=== PATIENT | female | born 1945 | race Caucasian/White ===

== ENCOUNTER 2016-10-04 10:56 | Outpatient (CLI) | payer MEDICARE | END 2016-10-04 10:57 | disposition home or self-care (01) | DX: Z12.31 Encounter for screening mammogram for malignant neoplasm of breast (principal); R92.8 Other abnormal and inconclusive findings on diagnostic imaging of breast ==

== ENCOUNTER 2016-10-16 12:48 | Outpatient (CLI) | payer MEDICARE ==
--- NOTE | 2016-10-16 14:59 | Mammography Report ---
DIGITAL DIAGNOSTIC RIGHT MAMMOGRAM: 10/16/2016 CLINICAL INDICATION: Possible nodule on screening. TECHNIQUE: Right true lateral and spot compression views. COMPARISON: 10/04/2016, 09/17/2015, 05/22/2014, 02/22/2012, 09/07/2010, 2008. FINDINGS: The right breast again demonstrates scattered fibroglandular densities. The density in question, in the right upper outer central breast, dissipates on additional compression, appearing similar to previous examinations. Please also refer to right breast ultrasound of the same day. IMPRESSION: NEGATIVE EXAMINATION. RECOMMENDATION: Routine annual screening unless otherwise clinically indicated. BI-RADS category 1, negative. STANDARD QUALIFYING STATEMENTS 1. This examination was reviewed with the aid of Computer-Aided Detection (CAD). 2. A negative or benign imaging report should not delay biopsy if clinically suspicious findings are present. Consider surgical consultation if warranted. More than 5% of cancers are not identified by imaging. 3. Dense breasts may obscure an underlying neoplasm. JOB #: [id number] EXT JOB #: [id number] TOVA
--- NOTE | 2016-10-17 09:35 | Ultrasound Report ---
RIGHT BREAST ULTRASOUND: 10/16/2016 CLINICAL INDICATION: Possible asymmetry on mammogram. TECHNIQUE: Real-time scanning was performed with food service representative static images obtained. FINDINGS: Ultrasound of the right upper outer quadrant was performed. Unremarkable parenchyma is seen. No discrete solid or cystic nodule is appreciated. No sonographically suspicious findings are seen. IMPRESSION: NEGATIVE EXAMINATION. RECOMMENDATION: Routine annual screening unless otherwise clinically indicated. BIRADS CATEGORY 1 - NEGATIVE. MTDD
== END 2016-10-16 12:49 | disposition home or self-care (01) ==
LOC: DI 12:48
PROVIDERS: ATTEND Family Medicine
DX: N63 Unspecified lump in breast (principal)
CPT/HCPCS: 76642; G0206

== ENCOUNTER 2017-01-16 10:09 | Outpatient (CLI) | payer MEDICARE ==
[2017-01-16 13:39] LABS: BASOPHILS % (AUTO) 0.3 %; EOSINOPHILS # (AUTO) 0.1 10^3/uL (0.0-0.7); EOSINOPHILS % (AUTO) 0.9 %; HCT - HEMATOCRIT 35.2 % (37.0-47.0); HGB - HEMOGLOBIN 11.9 g/dL (12.0-16.0); LYMPHOCYTES # (AUTO) 1.3 10^3/uL (1.5-3.5); LYMPHOCYTES % (AUTO) 19.2 %; MEAN CORPUSCULAR HEMOGLOBIN 30.1 pg (27.0-31.0); MEAN CORPUSCULAR HGB CONC 33.8 g/dL (32.0-36.0); MEAN CORPUSCULAR VOLUME 89.2 fL (81.0-99.0); MEAN PLATELET VOLUME 8.6 fL (7.9-10.8); MONOCYTES # (AUTO) 0.6 10^3/uL (0.0-1.0); MONOCYTES % (AUTO) 8.7 %; NEUTROPHILS # (AUTO) 4.7 10^3/uL (1.5-6.6); NEUTROPHILS % (AUTO) 70.9 %; NUCLEATED RED BLOOD CELLS AUTO 0.1 /100WBC; RED BLOOD COUNT 3.95 10^6/uL (4.20-5.40); RED CELL DISTRIBUTION WIDTH 14.5 % (12.0-15.0); UNCORRECTED WHITE BLOOD COUNT 6.6 x10^3/uL; WHITE BLOOD COUNT 6.6 x10^3/uL (4.8-10.8)
[2017-01-16 14:03] LABS: ALBUMIN/GLOBULIN RATIO 1.5 (1.0-2.2); BILIRUBIN,TOTAL 0.8 mg/dL (0.2-1.0); BUN - BLOOD UREA NITROGEN 18 mg/dL (6-20); CALCIUM 8.8 mg/dL (8.5-10.3); CARBON DIOXIDE - CO2 27 mmol/L (21-32); CHLORIDE 103 mmol/L (101-111); CHOL/HDL RATIO 2.5 (<4.4); CHOLESTEROL 145 mg/dL; CREATININE 0.7 mg/dL (0.4-1.0); GFR - MDRD 82 (>89); GLUCOSE 98 mg/dL (70-100); HDL CHOLESTEROL 57 mg/dL; LDL/HDL RATIO 1.3 (<4.4); SODIUM 139 mmol/L (135-145); TOTAL PROTEIN 6.3 g/dL (6.7-8.2); TRIGLYCERIDES 59 mg/dL; VLDL CHOLESTEROL 12 mg/dL
== END 2017-01-16 10:10 | disposition home or self-care (01) ==
LOC: LAB.WCP 10:09
PROVIDERS: ATTEND Family Medicine
DX: E78.5 Hyperlipidemia, unspecified (principal); D72.829 Elevated white blood cell count, unspecified
CPT/HCPCS: 36415; 80053; 80061; 85025

== ENCOUNTER 2017-02-27 09:45 | Outpatient (CLI) | payer MEDICARE ==
[2017-02-27 14:09] LABS: CREATININE 0.7 mg/dL (0.4-1.0)
== END 2017-02-27 09:46 | disposition home or self-care (01) ==
LOC: LAB.WCP 09:45
PROVIDERS: ATTEND Family Medicine
DX: E87.6 Hypokalemia (principal)
CPT/HCPCS: 36415; 80048

== ENCOUNTER 2017-03-15 10:56 | Outpatient (CLI) | payer MEDICARE ==
[2017-03-15 19:18] LABS: CALCIUM 8.8 mg/dL (8.5-10.3); CREATININE 0.6 mg/dL (0.4-1.0); POTASSIUM 3.9 mmol/L (3.5-5.0)
== END 2017-03-15 10:57 | disposition home or self-care (01) ==
LOC: LAB.WCP 10:56
PROVIDERS: ATTEND Family Medicine
DX: E78.6 Lipoprotein deficiency (principal)
CPT/HCPCS: 36415; 80048

== ENCOUNTER 2017-09-10 12:55 | Outpatient (CLI) | payer MEDICARE | END 2017-09-10 12:56 | disposition home or self-care (01) | LOC: DI 12:55 | PROVIDERS: ATTEND Family Medicine | DX: R07.89 Other chest pain (principal); I27.20 Pulmonary hypertension, unspecified; I07.1 Rheumatic tricuspid insufficiency | CPT/HCPCS: 93306 ==

== ENCOUNTER 2017-09-20 09:28 | Outpatient (CLI) | payer MEDICARE ==
[2017-09-20] MEDS ORDERED: REGADENOSON 0.4 MG/5 ML SYRINGE IVP ONE ×2 (13:52→15:31)
--- NOTE | 2017-09-20 16:19 | Nuclear Medicine Report ---
EXAM: SINGLE-ISOTOPE PHARMACOLOGICAL STRESS TEST WITH LEXISCAN. SINGLE-ISOTOPE AND SAME-DAY REST/STRESS FERMIN CARDIAL PERFUSION SCANS WITH TOMOGRAPHIC IMAGING, QUANTITATIVE ANALYSIS, WALL MOTION ANALYSIS AND ANEESH CULATION OF EJECTION FRACTION. EXAM DATE: 09/20/2017 CLINICAL HISTORY: CHEST PAIN. COMPARISON: None. TECHNIQUE: Following the intravenous administration of 9.8 mCi of Tc-99m sestamibi, a rest myocardial perfusion scan was done with tomography. Motion correction was applied when appropriate. After a delay of several hours on the same day, a pharmacological stress was performed with the infus ion of 0.4 mg of Lexiscan with walking treadmill augmentation. According to protocol, 36.4 mCi of Tc- 99m sestamibi was injected for stress myocardial perfusion scan. Stress myocardial perfusion was done with tomography without attenuation correction. Motion correction was applied when appropriate. Gated tomographic images were obtained for wall motion analysis and computation of left ventricular ejection fraction. FINDINGS: Perfusion images: Left ventricular chamber size is normal at rest and unchanged at stress. No convincing fixed perfusion deficits. No convincing reversible perfusion deficits. Gated images: No focal wall motion abnormality. The left ventricular ejection fraction is estimated at 93% (normal > 50%). IMPRESSION: 1. No convincing reversible perfusion deficits to indicate stress-induced ischemia. 2. No convincing fixed perfusion deficits. 3. Left ventricular ejection fraction of 93% (normal > 50%). 4. No focal wall motion abnormalities. [facility] Referring Provider Line: [phone] SITE ID: [id number]
--- NOTE | 2017-09-20 16:19 | Nuclear Medicine Prelim Report ---
Exam: NM MYOCARDIAL PERFUSION STR/RST IMPRESSION: 1. No convincing reversible perfusion deficits to indicate stress-induced ischemia. 2. No convincing fixed perfusion deficits. 3. Left ventricular ejection fraction of 93% (normal > 50%). 4. No focal wall motion abnormalities. [facility] SITE ID: [id number]
--- NOTE | 2017-09-20 18:20 | CARDIAC PROCEDURE NOTE ---
DATE OF SERVICE: 09/20/2017 Physician: DOMENICO Sadler PLANNED PROCEDURE: Myocardial perfusion treadmill; procedure converted to Lexiscan. REASON: The patient severely fatigued and yet unable to get heart rate into target range after several minutes. PROCEDURE SYMPTOMS: Atypical chest pain, heart palpitations and pulmonary hypertension. CARDIAC RISK FACTORS: Include age and hyperlipidemia. PREVIOUS CARDIAC PROCEDURES: ETT. CURRENT SYMPTOMATOLOGY: "I am very tired." Denies chest pain. CLINICAL HISTORY: A 72-year-old female without known coronary artery disease. INITIAL RESTING VITAL SIGNS: BP 112/70, heart rate 74, height 64 inches, weight 136 pounds. PROCEDURE AND FINDINGS: The patient identity and date verified, consent signed. Medication check. The patient performed treadmill exercise beginning a Juan Carlos for the first 3 minutes and then a modified Juan Carlos protocol when she couldn't keep up speed at stage II. Despite completing 10 minutes 26 seconds at a tolerable speed, she was unable to achieve target heart rate. She was then converted to a pharmaceutical MPS with Lexiscan. Maximal blood pressure [id number] with a heart rate of 115 beats per minute or 78% of maximum predicted heart rate for age. The blood pressure response to exercise was flat; however, the blood pressure did go up about 30 points from the Lexiscan. The resting ECG demonstrated normal sinus rhythm with (possible) biphasic T-wave in leads I through III. Maximum ST segment depression was less than 0.5 mm and upsloping. There was occasional monomorphic PVC. FINAL IMPRESSIONS 1. Equivocal stress electrocardiogram for ischemia by electrocardiographic criteria. 2. Equivocal stress test clinically for angina in light of the patient's profound fatigue. 3. Occasional monomorphic PVC. 4. Await result of myocardial perfusion testing. 5. Dr. Lora was notified about the conversion to Lexiscan and about the patient's abnormal EKG. TD: 09[facility]20/2017 18:[facility]
[2017-09-20 19:06] VITALS: BP 112/70
== END 2017-09-20 09:29 | disposition home or self-care (01) ==
LOC: DI 09:28
PROVIDERS: ATTEND Family Medicine
DX: R07.89 Other chest pain (principal); E78.5 Hyperlipidemia, unspecified
CPT/HCPCS: 78452; 93017; A9500; J2785

== ENCOUNTER 2018-03-05 10:27 | Outpatient (CLI) | payer MEDICARE | END 2018-03-05 10:28 | disposition home or self-care (01) | LOC: SC 10:27 | PROVIDERS: ATTEND Internal Medicine Pulmonary Disease | DX: G47.31 Primary central sleep apnea (principal); F51.04 Psychophysiologic insomnia | CPT/HCPCS: 99203; G0463; 99212 ==

== ENCOUNTER 2018-04-06 09:26 | Outpatient (CLI) | payer MEDICARE ==
[2018-04-06] MEDS ORDERED: IOPAMIDOL-300 100 ML VIAL ONE (09:41)
[2018-04-06] MEDS ORDERED: IOPAMIDOL-300 50 ML VIAL ONE (09:41)
[2018-04-06 09:46] LABS: CREATININE 0.8 mg/dL (0.4-1.0)
[2018-04-06] MEDS ORDERED: IOPAMIDOL-300 50 ML VIAL PO ONE (10:28)
[2018-04-06] MEDS ORDERED: IOPAMIDOL-300 100 ML VIAL IVP ONE (10:41)
--- NOTE | 2018-04-06 13:53 | CT Report ---
Reason: ABDOMINAL PAIN, RLQ Procedure Date: 04/06/2018 Accession Number: [id number] / [id number] Procedure: CT - Abdomen/Pelvis W/ CPT Code: FULL RESULT: EXAM: CT ABDOMEN AND PELVIS EXAM DATE: 04/06/2018 10:48 AM. CLINICAL HISTORY: ABDOMINAL PAIN, RLQ. COMPARISONS: None. TECHNIQUE: Routine helical CT imaging was performed through the abdomen and pelvis. IV contrast: 100 cc Isovue-300. Enteric contrast: Yes. Reconstructions: Coronal and sagittal. In accordance with CT protocol optimization, one or more of the following dose reduction techniques were utilized for this exam: automated exposure control, adjustment of mA and/or KV based on patient size, or use of iterative reconstructive technique. FINDINGS: Lung Bases: Small calcified granulomata in the posterior basal right lower lobe and anterior basal left lower lobe. There is also scattered noncalcified peribronchial micro-nodularity in both lung bases greatest in the inferior lingula. There is mild interlobular septal thickening in both lung bases suggesting mild interstitial edema. Mildly mosaic density pattern is noted in both lung bases which is nonspecific but suggestive patchy air-trapping. Lower mediastinum: There are several densely calcified lymph nodes in the lower posterior mediastinum and at the esophageal hiatus. Also, there are clustered mildly prominent noncalcified lymph nodes at the right cardiophrenic angle measuring up to 9 mm short axis diameter. Smaller lymph nodes are noted at the left cardiophrenic angle. Liver: Normal. No masses. Gallbladder/Bile Ducts: Unremarkable. Spleen: Normal. Pancreas: Normal. Adrenal Glands: Normal. Kidneys: Normal. No masses or hydronephrosis. Peritoneal Cavity/Bowel: Stomach normal in size and contour. There are 4 or 5 and 2.5 cm oval diverticula arising medially from the second and third portions of the duodenum filled with air and contrast. Jejunal and ileal loops are unremarkable. The cecum extends into the right mid pelvis. The appendix is not clearly identified. There is a small to moderate amount of formed stool in the colon. There is moderate descending and sigmoid colon diverticulosis. There is no pericolonic fat stranding. There is no lymphadenopathy, ascites, or pneumoperitoneum. Pelvic Organs: The bladder is empty. The uterus is surgically absent. No adnexal mass is identified. Vasculature: There is minimal scattered calcification within the normal-caliber abdominal aorta. There is a retroaortic left renal vein. Otherwise unremarkable. Bones: No significant abnormality. Other: Abdominal wall is unremarkable. IMPRESSION: 1. No clear findings to explain right lower quadrant pain. The appendix is not clearly identified, but no inflammatory change is identified around the cecum. 2. Small to moderate formed stool in the colon. 3. Moderate descending and sigmoid colon diverticulosis without evidence of acute diverticulitis. 4. Calcified granulomata in the basilar lower lobes bilaterally. Small calcified lymph nodes inferiorly in the posterior mediastinum. [facility]
== END 2018-04-06 09:27 | disposition home or self-care (01) ==
LOC: LAB 09:26 → DI 09:27
PROVIDERS: ATTEND Family Medicine
DX: R10.31 Right lower quadrant pain (principal); K57.30 Diverticulosis of large intestine without perforation or abscess without bleeding; I89.8 Other specified noninfective disorders of lymphatic vessels and lymph nodes
CPT/HCPCS: 36415; 74177; 80048; Q9967

== ENCOUNTER 2018-04-07 18:57 | Outpatient (CLI) | payer MEDICARE | END 2018-04-07 18:58 | disposition home or self-care (01) | LOC: SC 18:57 | PROVIDERS: ATTEND Internal Medicine Pulmonary Disease | DX: G47.31 Primary central sleep apnea (principal); G47.61 Periodic limb movement disorder; Z99.81 Dependence on supplemental oxygen | CPT/HCPCS: 95810 ==

== ENCOUNTER 2018-05-21 09:14 | Outpatient (CLI) | payer MEDICARE | END 2018-05-21 09:15 | disposition home or self-care (01) | LOC: SC 09:14 | PROVIDERS: ATTEND Nurse Practitioner Family | DX: G47.31 Primary central sleep apnea (principal); G47.61 Periodic limb movement disorder | CPT/HCPCS: 99214; G0463; 99212 ==

== ENCOUNTER 2018-05-30 09:51 | Outpatient (CLI) | payer MEDICARE ==
[2018-05-30] MEDS ORDERED: IOPAMIDOL-300 100 ML VIAL ONE (10:01)
[2018-05-30 10:32] LABS: CALCIUM 9.4 mg/dL (8.5-10.3); CREATININE 0.8 mg/dL (0.4-1.0)
[2018-05-30] MEDS ORDERED: IOPAMIDOL-300 100 ML VIAL IVP ONE (11:22)
--- NOTE | 2018-05-30 16:01 | CT Report ---
Reason: LUNG NODULE Procedure Date: 05/30/2018 Accession Number: [id number] / [id number] Procedure: CT - Chest W/ CPT Code: FULL RESULT: EXAM: CT CHEST EXAM DATE: 05/30/2018 10:48 AM. CLINICAL HISTORY: LUNG NODULE. COMPARISONS: CT scan abdomen and pelvis 9 118. TECHNIQUE: Routine helical CT imaging was performed through the chest. IV contrast: 80 cc Isovue 300. Reconstructions: Coronal and sagittal. In accordance with CT protocol optimization, one or more of the following dose reduction techniques were utilized for this exam: automated exposure control, adjustment of mA and/or KV based on patient size, or use of iterative reconstructive technique. FINDINGS: Lungs/Pleura: The lungs are diffusely abnormal. Patchy mosaic perfusion is present. There is a masslike area of focal consolidation involving the right upper lobe abutting the major fissure. Small amount of patchy consolidation is seen in the lingula. Innumerable scattered pulmonary nodules are present, a few of which have central calcification, for example series 4 image 34. The majority are noncalcified. Increased interstitial markings are present which may reflect interstitial edema, chronic interstitial lung disease, or lymphatic spread of tumor. No pleural effusion or pneumothorax. Mediastinum: Innumerable calcified bilateral hilar and mediastinal lymph nodes are present. The main pulmonary artery is dilated measuring 3.2 centimeters. The proximal bilateral right and left main pulmonary arteries are focally dilated each measuring approximately 3 cm Bones: Degenerative change in the spine. IMPRESSION: Markedly abnormal chest CT demonstratin. Evidence of old granulomatous disease with calcified hilar and mediastinal lymph nodes and a few scattered calcified granulomata in the lungs consistent with old infection. 2. Innumerable pulmonary nodules most of which are uncalcified. Differential includes infection, inflammatory diseases, and metastatic disease. 3. Masslike area of focal consolidation right upper lobe with small amount of lingular consolidation. Differential includes infection and tumor. 4. Dilated main, right and left pulmonary arteries consistent with pulmonary hypertension. [facility] ADDENDUM: 06/12/18 12:05 This addendum is to reflect that the previously performed study dated 08/20/2017, as well as multiple chest radiographs from 2006 are now available for comparative review. The consolidation in the right upper lung previously described as masslike was also present in August 2017, as are the identified innumerable nodules with interstitial thickening. Recommendation: The overall appearance between the two studies is similar. If no diagnosis is established and the patient does not have a known history of malignancy, inflammatory disease or pulmonary infection with reactive component to explain the findings, referral to pulmonology and/or tissue sampling should be considered.
== END 2018-05-30 09:52 | disposition home or self-care (01) ==
LOC: LAB 09:51 → DI 09:52
PROVIDERS: ATTEND Family Medicine
DX: R91.8 Other nonspecific abnormal finding of lung field (principal); R74.8 Abnormal levels of other serum enzymes; E78.5 Hyperlipidemia, unspecified
CPT/HCPCS: 36415; 71260; 80048; Q9967

== ENCOUNTER 2018-06-06 08:56 | Outpatient (CLI) | payer MEDICARE ==
--- NOTE | 2018-06-07 09:34 | Mammography Report ---
Reason: SCREENING MAMMO Procedure Date: 06/06/2018 Accession Number: [id number] / [id number] Procedure: MGN - Screening Mammo Dig Bilat CPT Code: FULL RESULT: EXAM: Screening Mammo Dig Bilat DATE: 06/06/2018 9:02 AM CLINICAL HISTORY: 72-year-old female for screening mammogram. TECHNIQUE: Bilateral CC, laterally exaggerated CC, MLO views were obtained. COMPARISON: 10/16/2016, 10/04/2016, 09/17/2015, 05/22/2014. FINDINGS: The breasts demonstrate scattered fibroglandular densities bilaterally. Typically benign coarse calcifications are seen on the left. No suspicious masses, clustered microcalcifications, or regions of architectural distortion are identified. IMPRESSION: Benign findings RECOMMENDATION: Routine annual screening unless otherwise clinically indicated. BIRADS CATEGORY 2: Benign findings STANDARD QUALIFYING STATEMENTS: 1. This examination was reviewed with the aid of Computer-Aided Detection (CAD). 2. A negative or benign imaging report should not delay biopsy if clinically suspicious findings are present. Consider surgical consultation if warrented. More than 5% of cancers are not identified by imaging. 3. Dense breasts may obscure an underlying neoplasm. 4. This examination was reviewed without the aid of 3D breast imaging (tomosynthesis).
== END 2018-06-06 08:57 | disposition home or self-care (01) ==
LOC: DI.N 08:56
DX: Z12.31 Encounter for screening mammogram for malignant neoplasm of breast (principal)
CPT/HCPCS: 77067

== ENCOUNTER 2018-07-08 10:20 | Outpatient (CLI) | payer MEDICARE | END 2018-07-08 10:21 | disposition home or self-care (01) | LOC: SC 10:20 | PROVIDERS: ATTEND Internal Medicine Pulmonary Disease | DX: G47.31 Primary central sleep apnea (principal); Z99.81 Dependence on supplemental oxygen | CPT/HCPCS: 99213; G0463; 99212 ==

== ENCOUNTER 2019-01-16 08:00 | Outpatient (CLI) | payer MEDICARE | END 2019-01-16 23:59 | LOC: LAB.R 08:00 | PROVIDERS: ATTEND Family Medicine | DX: S41.102A Unspecified open wound of left upper arm, initial encounter (principal) | CPT/HCPCS: 87070; 87205 ==

== ENCOUNTER 2019-01-28 11:29 | Outpatient (CLI) | payer MEDICARE ==
--- NOTE | 2019-01-28 17:55 | XRAY Report ---
Reason: LEFT HAND PAIN Procedure Date: 01/28/2019 Accession Number: [id number] / [id number] Procedure: XRN - Hand 3 View LT CPT Code: FULL RESULT: EXAM: LEFT HAND RADIOGRAPHY EXAM DATE: 01/28/2019 11:46 AM. CLINICAL HISTORY: LEFT HAND PAIN. COMPARISON: None. TECHNIQUE: 3 views. FINDINGS: Bones: Normal. No fractures or bone lesions. Joints: Mild degenerative changes at the first carpometacarpal joint and at the radial aspect of the distal carpus. No subluxations. Soft Tissues: Normal. No soft tissue swelling. IMPRESSION: 1. No acute abnormality seen in the left hand. 2. Mild degenerative changes at the first carpometacarpal joint and at the radial aspect of the distal carpus. [facility]
== END 2019-01-28 11:30 | disposition home or self-care (01) ==
LOC: DI.N 11:29
PROVIDERS: ATTEND Family Medicine
DX: M18.12 Unilateral primary osteoarthritis of first carpometacarpal joint, left hand (principal)

== ENCOUNTER 2019-09-24 13:43 | Outpatient (CLI) | payer MEDICARE, OTHER ==
--- NOTE | 2019-09-25 08:56 | XRAY Report ---
Reason: NECK PAIN Procedure Date: 09/24/2019 Accession Number: [id number] / [id number] Procedure: WCP - Cervical Spine 2 View CPT Code: Final Report FULL RESULT: EXAM: CERVICAL SPINE RADIOGRAPHY EXAM DATE: 09/24/2019 01:43 PM. CLINICAL HISTORY: 74-year-old woman with neck pain. COMPARISONS: None. TECHNIQUE: 3 views. FINDINGS: Alignment: Mild grade 1 retrolisthesis of C5 on C6 measures of proximally 2 mm. No significant scoliosis. There is straightening of normal cervical lordosis. Bones: The cervical vertebral bodies and posterior elements are well visualized from the skull base through C7-T1. No fractures or bone lesions. Chronic degenerative endplate sclerosis is present along the posterior corners at multiple levels, greatest at C3-C4. Disks: Moderate to severe disk height loss is present at C5-C6 and moderate disk height loss is present at C3-C4, C4-C5, and C6-C7. Facets: No degenerative disease. Soft Tissues: Normal. No prevertebral soft tissue swelling. The visualized lung apices are clear. IMPRESSION: 1. Mild grade 1 retrolisthesis of C5 on C6. 2. Multilevel degenerative disk changes, worst at C5-C6. [facility]
== END 2019-09-24 23:59 | disposition home or self-care (01) ==
LOC: DI.WCP 13:43
PROVIDERS: ATTEND Family Medicine
DX: M43.12 Spondylolisthesis, cervical region (principal); M50.321 Other cervical disc degeneration at C4-C5 level
CPT/HCPCS: 72040

== ENCOUNTER 2020-01-20 09:06 | Outpatient (CLI) | payer MEDICARE, OTHER ==
--- NOTE | 2020-01-20 14:44 | XRAY Report ---
Reason: RIGHT HIP PAIN Procedure Date: 01/20/2020 Accession Number: [id number] / [id number] Procedure: WCP - Hip 1 View RT CPT Code: Final Report FULL RESULT: PROCEDURE: Hip 1 View RT INDICATIONS: RIGHT HIP PAIN TECHNIQUE: 2 views of the hip were acquired. COMPARISON: Prior CT abdomen/pelvis 04/06/2018 FINDINGS: Bones: No fractures or dislocations. No suspicious bony lesions. The visualized pelvic ring appears intact. Soft tissues: No suspicious soft tissue calcifications or masses. IMPRESSION: No trauma found. Mild asymmetry in hip joint osteoarthritis greater on the right than the left. The overall degree of degenerative change is mild. Reviewed by: Gomez Clay MD on 01/20/2020 1:42 PM [facility] Approved by: Gomez Clay MD on 01/20/2020 1:42 PM [facility]DT Station ID: [id number]
== END 2020-01-20 23:59 | disposition home or self-care (01) ==
LOC: DI.WCP 09:06
PROVIDERS: ATTEND Family Medicine
DX: M16.0 Bilateral primary osteoarthritis of hip (principal)

== ENCOUNTER 2020-01-27 08:47 | Outpatient (CLI) | payer MEDICARE, OTHER ==
--- NOTE | 2020-01-27 09:33 | DEXA Report ---
Reason: POST MENOPAUSAL Procedure Date: 01/27/2020 Accession Number: [id number] / [id number] Procedure: DEX - Dexa Spine and/or Hip CPT Code: Final Report FULL RESULT: PROCEDURE: Dexa Spine and/or Hip INDICATIONS: POST MENOPAUSAL TECHNIQUE: Dual energy x-ray absorptiometry (DXA) was performed on a [employer] System. Regions measured are the AP Spine, femoral neck, and if needed forearm. COMPARISON: 06/15/2016 FINDINGS: Lumbar Spine: Bone Mineral Density 1.091 g/cm/cm,T score -0.7, normal, change from previous -3.6%, significant Left Hip: Bone Mineral Density 0.847 g/cm/cm,T score -1.3, osteopenia, change from previous -0.8% Left Femoral Neck: Bone Mineral Density 0.853 g/cm/cm, T score -1.3, osteopenia, (T score greater or equal to -1.0: NORMAL) (T score from -1.1 to -2.4: OSTEOPENIA) (T score less than or equal to -2.5 to: OSTEOPOROSIS) Impression: 1. Significant interval decrease in lumbar spine bone mineral density compared to the prior study. 2. Osteopenia elevates the patient's fracture risk. Patients with diagnosis of osteoporosis or osteopenia should have regular bone mineral density assessment. For those eligible for Medicare, routine testing is allowed once every 2 years. Testing frequency can be increased for patients who have rapidly progressing disease or for those who are receiving medical therapy to restore bone mass. Reviewed by: Genny Victoria MD on 01/27/2020 9:32 AM PDT Approved by: Genny Victoria MD on 01/27/2020 9:32 AM PDT Station ID: [id number]
== END 2020-01-27 08:48 | disposition home or self-care (01) ==
LOC: DI 08:47
PROVIDERS: ATTEND Family Medicine
DX: M85.89 Other specified disorders of bone density and structure, multiple sites (principal)
CPT/HCPCS: 77080

== ENCOUNTER 2020-03-15 07:42 | Outpatient (CLI) | payer MEDICARE, OTHER | END 2020-03-15 07:43 | disposition short-term general hospital (02) | LOC: EMS 07:42 | PROVIDERS: ATTEND Surgery | DX: I21.4 Non-ST elevation (NSTEMI) myocardial infarction (principal) | CPT/HCPCS: A0425; A0426 ==

== ENCOUNTER 2020-06-22 15:49 | Emergency (ER) | payer MEDICARE, OTHER ==
--- NOTE | 2020-06-22 16:02 | ED Physician Documentation ---
PD HPI CHEST PAIN - Stated complaint Stated Complaint: RAPID HEARTBEAT - Chief complaint Chief Complaint: Cardiac - History obtained from History obtained from: Patient - History of Present Illness Timing - onset: How many hours ago (2 1/2) Timing - onset during: Rest, Light activity Timing - duration: Hours (2 1/2) Timing - details: Abrupt onset, Still present Quality: Tightness Location: Substernal Worsened by: No: Exertion, Inspiration Associated symptoms: General Weakness, Palpitations (feeling heart rate going fast abruptly, with general lightheaded but no near syncope.). No: Shortness of air Similar symptoms before: Diagnosis (SVT episodes) Recently seen: Emergency Dept (3 months ago with similar.) Review of Systems Constitutional: denies: Fever, Chills Nose: denies: Rhinorrhea / runny nose, Congestion Throat: denies: Sore throat Respiratory: denies: Cough GI: denies: Nausea, Vomiting, Diarrhea : denies: Dysuria Neurologic: reports: Generalized weakness (just with onset fast hert rate; was feeling okay prior to that.). 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 HEENT: Tonsil/Adenoidectomy - Present Medications Home Medications: Ambulatory Orders Medication Instructions Recorded Confirmed Aspirin/Acetaminophen/Caffeine 1 cap PO DAILY 07/11/13 03/14/20 [Excedrin Migraine Geltabs] Atorvastatin Calcium [Lipitor] 20 mg PO QPM 07/11/13 03/14/20 Clopidogrel [Plavix] 75 mg PO DAILY 07/11/13 03/14/20 DULoxetine [Cymbalta] 30 mg PO QPM 07/11/13 03/14/20 Dextroamphetamine/Amphetamine 30 mg PO BIDWM 07/11/13 03/14/20 [Amphetamine Salts 30 mg Tab] Ergocalciferol (Vitamin D2) 50,000 unit PO ONCE 07/11/13 03/14/20 [Drisdol] Fluticasone [Flonase] 2 sprays ADITI BID 07/11/13 03/14/20 Hypromellose [Genteal Severe] 1 applic OPTH HS 07/11/13 03/14/20 Levalbuterol [Xopenex] 1 puffs INH Q4-6H 07/11/13 03/14/20 Mometasone/Formoterol [Dulera 100 2 puffs IH BID 07/11/13 03/14/20 Mcg/5 Mcg Inhaler] Pantoprazole Sodium 40 mg PO BID 07/11/13 03/14/20 Riboflavin (Vitamin B2) [Vitamin 4 tab PO DAILY 07/11/13 03/14/20 B-2] Sucralfate 1 gm PO QID PRN 07/11/13 03/14/20 Albuterol Sulfate [Albuterol 2 puffs IH Q4HR PRN 03/14/20 03/14/20 Sulfate Hfa] Ascorbic Acid [Vitamin C] 1 tab PO DAILY 03/14/20 03/14/20 Calcium Carbonate [Calcium] 1 tab PO BID 03/14/20 03/14/20 Cholecalciferol (Vitamin D3) 1 tab PO DAILY 03/14/20 03/14/20 [Vitamin D3] Clotrimazole Nik 10 mg PO DAILY 03/14/20 03/14/20 Diltiazem HCl [Diltiazem 24Hr ER] 180 mg PO DAILY 03/14/20 03/14/20 Furosemide 20 mg PO DAILY 03/14/20 03/14/20 Gabapentin 200 mg PO TID 03/14/20 03/14/20 Loperamide HCl [Imodium A-D] 2 mg PO TID 03/14/20 03/14/20 Multivitamin [Multivitamins] 1 cap PO DAILY 03/14/20 03/14/20 Dane-3/Dha/Epa/Fish Oil [Fish Oil 1 cap PO QID 03/14/20 03/14/20 Dane-3 EC 1,200 mg] Tadalafil [Alyq] 20 mg PO BID 03/14/20 03/14/20 Trazodone HCl 50 mg PO DAILY 03/14/20 03/14/20 methocarbamoL [Methocarbamol] 1 tab PO QID 03/14/20 03/14/20 Potassium Chloride 10 meq PO DAILY #15 tablet.er 06/22/20 - Allergies Allergies/Adverse Reactions: Allergies Allergy/AdvReac Type Severity Reaction Status Date / Time nitrofurantoin Allergy Unknown Rash Verified 06/22/20 15:53 [From Macrobid] nitrofurantoin Allergy Unknown Rash Verified 06/22/20 15:53 macrocrystalline * [From Macrobid] clarithromycin [From Biaxin] AdvReac Severe Emesis Verified 06/22/20 15:53 proparacaine AdvReac Severe Anxiety Verified 06/22/20 15:53 - Social History Does the pt smoke?: Yes Smoking Status: Current every day smoker Does the pt drink ETOH?: No Does the pt have substance abuse?: No - Immunizations Immunizations are current?: Yes - POLST Patient has POLST: No PD ED PE NORMAL - Vitals Vital signs reviewed: Yes - General General: Alert and oriented X 3, Well developed/nourished - HEENT HEENT: Moist mucous membranes, Pharynx benign - Neck Neck: Supple, no meningeal sign, No adenopathy, No JVD - Cardiac Cardiac: No: RRR (Heart rate is regular but tachycardic at 145 rate. No murmurs heard. Lung sounds are clear without any wheeze or crackles.) - Respiratory Respiratory: Clear bilaterally - Abdomen Abdomen: Soft, Non tender - Derm Derm: Normal color, Warm and dry - Extremities Extremities: Normal ROM s pain, No edema, No calf tenderness / cord - Neuro Neuro: Alert and oriented X 3, No motor deficit, Normal speech Results - Vitals Vitals: Vital Signs - 24 hr 06/22/20 06/22/20 06/22/20 15:53 16:21 16:30 Temperature 36.6 C Heart Rate 147 H 84 82 Respiratory 16 15 14 Rate Blood Pressure 124/61 100/54 L 112/59 L O2 Saturation 97 96 100 06/22/20 17:00 Temperature 36.5 C Heart Rate 84 Respiratory 18 Rate Blood Pressure 100/58 L O2 Saturation 100 Oxygen O2 Source Room air - EKG (time done) 15:59 Rate: Rate (enter#) (140) Rhythm: SVT Ischemia: ST depression (diffuse mild ST depressions c/w rate related ischemia. ) post conversi Rate: Rate (enter#) Rhythm: NSR Intervals: Normal WI QRS: Normal Ischemia: Normal ST segments. No: ST elevation c/w ischemia, ST depression - Labs Labs: Laboratory Tests 06/22/20 06/22/20 06/22/20 16:07 16:07 16:07 WBC 5.6 RBC 4.44 Hgb 13.8 Hct 41.0 MCV 92.3 MCH 31.1 H MCHC 33.7 RDW 14.5 Plt Count 174 MPV 9.8 Neut # (Auto) 4.0 Lymph # (Auto) 1.0 L [place] # (Auto) 0.5 Eos # (Auto) 0.1 Baso # (Auto) 0.0 Absolute Nucleated RBC 0.00 Nucleated RBC % 0.0 Sodium 141 Potassium 3.5 Chloride 102 Carbon Dioxide 27 Anion Gap 12.0 BUN 18 Creatinine 0.8 Estimated GFR (MDRD) 70 L Glucose 95 Calcium 9.6 Magnesium 1.8 Total Bilirubin 0.7 AST 28 ALT 22 Alkaline Phosphatase 72 Total Protein 7.2 Albumin 4.1 Globulin 3.1 Albumin/Globulin Ratio 1.3 TSH 2.26 PD MEDICAL DECISION MAKING - ED course Complexity details: re-evaluated patient (The patient converted to sinus rhythm with adenosine and subsequently has a sinus rhythm and feels better.), considered differential (She presents with a very regular fast heart rate at 1 40-1 45. There is no obvious variability. No obvious P waves. It appears SVT. Will check electrolytes and try adenosine.), d/w patient Departure - Departure Disposition: 01 Home, Self Care Clinical Impression: Paroxysmal SVT (supraventricular tachycardia) Condition: Stable Record reviewed to determine appropriate education?: Yes Instructions: ED Tachycardia Pat PSVT Follow-Up: Nancy Ortiz DO [Primary Care Provider] - Prescriptions: Potassium Chloride 10 meq PO DAILY #15 tablet.er Comments: Continue usual medications. Stay adequately hydrated. Low-salt diet. Add potassium supplement daily for the next couple of weeks. Follow-up with your primary care if recurrent episodes of return to the ER as needed. Discharge Date/Time: 06/22/20 17:12
[2020-06-22] MEDS ORDERED: ADENOSINE 6 MG/2 ML VIAL IVP STA (16:13)
[2020-06-22] MEDS ORDERED: SODIUM CHLORIDE 0.9% 1,000 ML IV STA (16:13)
[2020-06-22 16:28] LABS: BASOPHILS % (AUTO) 0.4 %; EOSINOPHILS # (AUTO) 0.1 10^3/uL (0.0-0.7); EOSINOPHILS % (AUTO) 1.1 %; HGB - HEMOGLOBIN 13.8 g/dL (12.0-16.0); LYMPHOCYTES % (AUTO) 18.4 %; MEAN CORPUSCULAR HEMOGLOBIN 31.1 pg (27.0-31.0); MEAN CORPUSCULAR HGB CONC 33.7 g/dL (32.0-36.0); MEAN CORPUSCULAR VOLUME 92.3 fL (81.0-99.0); MEAN PLATELET VOLUME 9.8 fL (7.9-10.8); MONOCYTES # (AUTO) 0.5 10^3/uL (0.0-1.0); MONOCYTES % (AUTO) 9.6 %; NEUTROPHILS % (AUTO) 70.3 %; PLT - PLATELET COUNT 174 10^3/uL (130-450); RED BLOOD COUNT 4.44 10^6/uL (4.20-5.40); RED CELL DISTRIBUTION WIDTH 14.5 % (12.0-15.0); WHITE BLOOD COUNT 5.6 x10^3/uL (4.8-10.8)
[2020-06-22 16:41] LABS: ALBUMIN 4.1 g/dL (3.2-5.5); ALBUMIN/GLOBULIN RATIO 1.3 (1.0-2.2); BILIRUBIN,TOTAL 0.7 mg/dL (0.2-1.0); CALCIUM 9.6 mg/dL (8.5-10.3); CREATININE 0.8 mg/dL (0.4-1.0); MAGNESIUM 1.8 mg/dL (1.7-2.8); TOTAL PROTEIN 7.2 g/dL (6.7-8.2)
[2020-06-22] MEDS ORDERED: POTASSIUM CHLORIDE 20 MEQ TABLET PO STA (16:50)
[2020-06-22 17:11] VITALS: BP 100/58
== END 2020-06-22 17:12 | disposition home or self-care (01) ==
LOC: ED 15:49
DX: I47.1 Supraventricular tachycardia (principal); F17.200 Nicotine dependence, unspecified, uncomplicated; Z79.02 Long term (current) use of antithrombotics/antiplatelets; Z79.82 Long term (current) use of aspirin
CPT/HCPCS: 36415; 80053; 83735; 84443; 85025; 93005; 96374; 99284; A9270; J0153

== ENCOUNTER 2020-10-17 18:15 | Inpatient (IN) | payer MEDICARE, OTHER ==
[2020-10-17 18:48] LABS: BASOPHILS % (AUTO) 0.5 %; EOSINOPHILS # (AUTO) 0.2 10^3/uL (0.0-0.7); EOSINOPHILS % (AUTO) 3.4 %; HCT - HEMATOCRIT 37.2 % (37.0-47.0); HGB - HEMOGLOBIN 12.1 g/dL (12.0-16.0); LYMPHOCYTES # (AUTO) 0.7 10^3/uL (1.5-3.5); MEAN CORPUSCULAR HEMOGLOBIN 30.6 pg (27.0-31.0); MEAN CORPUSCULAR HGB CONC 32.5 g/dL (32.0-36.0); MEAN CORPUSCULAR VOLUME 93.9 fL (81.0-99.0); MEAN PLATELET VOLUME 10.2 fL (7.9-10.8); MONOCYTES # (AUTO) 0.4 10^3/uL (0.0-1.0); MONOCYTES % (AUTO) 5.6 %; NEUTROPHILS # (AUTO) 5.1 10^3/uL (1.5-6.6); NEUTROPHILS % (AUTO) 79.3 %; PLT - PLATELET COUNT 177 10^3/uL (130-450); RED BLOOD COUNT 3.96 10^6/uL (4.20-5.40); RED CELL DISTRIBUTION WIDTH 14.6 % (12.0-15.0); WHITE BLOOD COUNT 6.4 x10^3/uL (4.8-10.8)
[2020-10-17 19:01] LABS: ALBUMIN 3.7 g/dL (3.2-5.5); ALBUMIN/GLOBULIN RATIO 1.3 (1.0-2.2); BILIRUBIN,TOTAL 0.6 mg/dL (0.2-1.0); POTASSIUM 3.6 mmol/L (3.5-5.0); TOTAL PROTEIN 6.6 g/dL (6.7-8.2)
[2020-10-17 19:08] LABS: DIFFERENTIAL COMMENT MANUAL=AUTO DIFF; PLATELET ESTIMATE, MANUAL NORMAL (130-450,000) (NORMAL); PLATELET MORPHOLOGY NORMAL APPEARANCE (NORMAL); RBC MORPHOLOGY (MULTIPLE) NORMAL APPEARANCE (NORMAL)
--- NOTE | 2020-10-17 19:16 | XRAY Report ---
PROCEDURE: Chest 1 View X-Ray INDICATIONS: Chest pain TECHNIQUE: One view of the chest was acquired. COMPARISON: None FINDINGS: Surgical changes and devices: None. Lungs and pleura: No pleural effusions or pneumothorax. Moderate multifocal patchy bilateral airspac e opacity. Mediastinum: Mediastinal contours appear normal. Heart size is normal. Bones and chest wall: No suspicious bony lesions. Overlying soft tissues appear unremarkable. IMPRESSION: Moderate bilateral pneumonia. Reviewed by: Tracy Ramirez MD on 10/17/2020 7:15 PM PDT Approved by: Tracy Ramirez MD on 10/17/2020 7:15 PM PDT Station ID: [id number]
--- NOTE | 2020-10-17 19:35 | ED Physician Documentation ---
PD HPI CHEST PAIN - Stated complaint Stated Complaint: FAINTED - Chief complaint Chief Complaint: Cardiac - History obtained from History obtained from: Patient - History of Present Illness Timing - onset: Today Timing - onset during: Light activity Timing - duration: Minutes (3-5) Timing - details: Gradual onset Pain level max: 8 Pain level now: 5 Quality: Pressure, Tightness Location: Substernal, Left chest Radiation: No: Jaw, Neck, Back, Abdominal, Left upper extremity, Right upper extremity Improved by: Nothing Worsened by: No: Exertion, Inspiration, Eating, Movement, Palpation, Position Associated symptoms: Shortness of air, Feeling faint / dizzy, General Weakness, Palpitations. No: Diaphoresis, Nausea, Vomiting - Additional information Additional information: Patient is a 75-year-old female who presents to the emergency department stating that she had chest pain today and palpitations. She states that she was told when she feels that to take an extra dose of her metoprolol. She took her metoprolol and states that her symptoms are resolved. She did not take her p ulse before taking the metoprolol. She is unclear what her heart rate was before that. She states later in the day the symptoms recurred, she was on her way to get her metoprolol again when she felt very weak and thinks that she may have passed out. She is unclear if she actually passed out or not. Patient states that she has had chest pain like this in the past with no cause found. Has had 2 cardiac stress test in the past 15 years that were reportedly normal. She is unsure when the last one was. She is seen by cardiology, Dr. Miller at [facility] in [place]. No recent medication changes. No history of cardiac stents or bypasses. No recent illnesses Review of Systems Ten Systems: 10 systems reviewed and negative Constitutional: denies: Fever, Chills Ears: denies: Ear pain Nose: denies: Rhinorrhea / runny nose, Congestion Throat: denies: Sore throat Respiratory: denies: Dyspnea, Cough GI: denies: Abdominal Pain, Nausea, Vomiting : denies: Dysuria Skin: denies: Rash Musculoskeletal: denies: Neck pain, Back pain Neurologic: denies: Headache PD PAST MEDICAL HISTORY - Past Medical History Past Medical History: Yes Cardiovascular: High cholesterol, Murmur, Arrhythmia Respiratory: Asthma Neuro: None Endocrine/Autoimmune: None GI: GERD, Chronic diarrhea, Chronic constipation, Other : Incontinence, Nocturia HEENT: Other Psych: Depression, ADD/ADHD Musculoskeletal: Fatigue - Past Surgical History 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 HEENT: Tonsil/Adenoidectomy - Present Medications Home Medications: Ambulatory Orders Medication Instructions Recorded Confirmed Aspirin/Acetaminophen/Caffeine 1 cap PO DAILY PRN 07/11/13 10/17/20 [Excedrin Migraine Geltabs] Atorvastatin Calcium [Lipitor] 20 mg PO QPM 07/11/13 10/17/20 Clopidogrel [Plavix] 75 mg PO DAILY 07/11/13 10/17/20 DULoxetine [Cymbalta] 30 mg PO QPM 07/11/13 10/17/20 Pantoprazole Sodium 40 mg PO BID 07/11/13 10/17/20 Riboflavin (Vitamin B2) [Vitamin 4 tab PO DAILY 07/11/13 10/17/20 B-2] Sucralfate 1 gm PO QID PRN 07/11/13 10/17/20 Albuterol Sulfate [Albuterol 2 puffs IH Q4HR PRN 03/14/20 10/17/20 Sulfate Hfa] Ascorbic Acid [Vitamin C] 1 tab PO DAILY 03/14/20 10/17/20 Calcium Carbonate [Calcium] 1 tab PO BID 03/14/20 10/17/20 Cholecalciferol (Vitamin D3) 1 tab PO DAILY 03/14/20 10/17/20 [Vitamin D3] Diltiazem HCl [Diltiazem 24Hr ER] 180 mg PO DAILY 03/14/20 10/17/20 Furosemide 20 mg PO DAILY 03/14/20 10/17/20 Gabapentin 200 mg PO TID 03/14/20 10/17/20 Loperamide HCl [Imodium A-D] 2 mg PO TID 03/14/20 10/17/20 Multivitamin [Multivitamins] 1 cap PO DAILY 03/14/20 10/17/20 Jackson-3/Dha/Epa/Fish Oil [Fish Oil 1 cap PO QID 03/14/20 10/17/20 Jackson-3 EC 1,200 mg] Tadalafil [Alyq] 20 mg PO BID 03/14/20 10/17/20 Trazodone HCl 50 mg PO DAILY 03/14/20 10/17/20 Acetaminophen [Acetaminophen Extra 500 mg PO PRN 10/17/20 Strength] Budesonide [Pulmicort] 1 inh INH BID 10/17/20 10/17/20 Cyanocobalamin [Vitamin B-12] 1 ml INJ 10/17/20 Formoterol Fumarate [Perforomist] 1 drops INH BID 10/17/20 10/17/20 Metoprolol Tartrate [Lopressor] 50 mg PO DAILY PRN 10/17/20 10/17/20 Mirtazapine [Remeron] 15 mg PO DAILY 10/17/20 10/17/20 Triamcinolone 0.1% Cream [Kenalog 10/17/20 0.1% Cream] - Allergies Allergies/Adverse Reactions: Allergies Allergy/AdvReac Type Severity Reaction Status Date / Time nitrofurantoin Allergy Unknown Rash Verified 10/17/20 18:23 [From Macrobid] nitrofurantoin Allergy Unknown Rash Verified 10/17/20 18:23 macrocrystalline * [From Macrobid] clarithromycin [From Biaxin] AdvReac Severe Emesis Verified 10/17/20 18:23 - Social History Does the pt smoke?: Yes Smoking Status: Current every day smoker Does the pt drink ETOH?: No Does the pt have substance abuse?: No - Immunizations Immunizations are current?: Yes - POLST Patient has POLST: No PD ED PE NORMAL - Vitals Vital signs reviewed: Yes - General General: Alert and oriented X 3, No acute distress - HEENT HEENT: Moist mucous membranes - Neck Neck: Supple, no meningeal sign - Cardiac Cardiac: RRR, Strong equal pulses - Respiratory Respiratory: No respiratory distress, Clear bilaterally - Abdomen Abdomen: Soft, Non tender, Non distended - Derm Derm: Warm and dry - Extremities Extremities: No edema, No calf tenderness / cord - Neuro Neuro: Alert and oriented X 3 Results - Vitals Vitals: Vital Signs - 24 hr 10/17/20 10/17/20 18:19 18:53 Temperature 36.0 C L Heart Rate 71 61 Respiratory 16 16 Rate Blood Pressure 129/42 L 107/49 L O2 Saturation 96 98 Oxygen O2 Source Room air - Labs Labs: Laboratory Tests 10/17/20 10/17/20 10/17/20 18:40 18:40 18:40 WBC 6.4 RBC 3.96 L Hgb 12.1 Hct 37.2 MCV 93.9 MCH 30.6 MCHC 32.5 RDW 14.6 Plt Count 177 MPV 10.2 Neut # (Auto) 5.1 Lymph # (Auto) 0.7 L [place] # (Auto) 0.4 Eos # (Auto) 0.2 Baso # (Auto) 0.0 Absolute Nucleated RBC 0.00 Band Neuts % (Manual) Not Reportable Abnorm Lymph % (Manual) Not Reportable Nucleated RBC % 0.0 Neutrophils # (Manual) Not Reportable Lymphocytes # (Manual) Not Reportable Monocytes # (Manual) Not Reportable Eosinophils # (Manual) Not Reportable Basophils # (Manual) Not Reportable Differential Comment MANUAL=AUTO DIFF Platelet Estimate NORMAL (130-450,000) Platelet Morphology NORMAL APPEARANCE RBC Morph Micro Appear NORMAL APPEARANCE Sodium 138 Potassium 3.6 Chloride 104 Carbon Dioxide 25 Anion Gap 9.0 BUN 22 H Creatinine 1.0 Estimated GFR (MDRD) 54 L Glucose 154 H Calcium 9.0 Total Bilirubin 0.6 AST 66 H ALT 30 Alkaline Phosphatase 83 Troponin I High Sens 5.6 Total Protein 6.6 L Albumin 3.7 Globulin 2.9 Albumin/Globulin Ratio 1.3 Lipase 18 L - Rads (name of study) cxr Radiology: Prelim report reviewed, EMP read contemporaneously, See rad report (Moderate bilateral pneumonia. ) PD MEDICAL DECISION MAKING - ED course Complexity details: reviewed results, re-evaluated patient, considered differential, d/w patient ED course: Chest x-ray was read as moderate bilateral pneumonia, this is not consistent with her symptoms today. Likely that this is more related to her sarcoidosis on the chest x-ray. No antibiotics will be given. No fever. We will place the patient in observation for chest pain and syncope. Discussed the case with Dr. Preciado hospitalist accepts This document was made in part using voice recognition software. While efforts are made to proofread this document, sound alike and grammatical errors may occur. Departure - Departure Disposition: ED Place in Observation Clinical Impression: Chest pain Qualifiers: Chest pain type: unspecified Qualified Code(s): R07.9 - Chest pain, unspecified Condition: Good Discharge Date/Time: 10/17/20 21:10
[2020-10-17] MEDS ORDERED: SODIUM CHLORIDE FLUSH 0.9% 10 ML SYRINGE IVP PRN (20:16)
[2020-10-17] MEDS ORDERED: ONDANSETRON 4 MG/2 ML VIAL IVP PRN (20:16)
[2020-10-17] MEDS ORDERED: ACETAMINOPHEN 325 MG TABLET PO PRN (20:16)
[2020-10-17] MEDS ORDERED: LACTATED RINGERS 1,000 ML IV SCH (21:00)
[2020-10-17] MEDS ORDERED: LOPERAMIDE 2 MG CAPSULE PO PRN (21:03)
[2020-10-17] MEDS: TADALAFIL 20 MG PO SCH (21:31)
[2020-10-17] MEDS: ATORVASTATIN 10 MG TABLET PO SCH (21:36)
[2020-10-17] MEDS: DULoxetine 30 MG CAPSULE PO SCH (21:36)
[2020-10-17] MEDS: GABAPENTIN 100 MG CAPSULE PO SCH (21:37)
[2020-10-17] MEDS: FAMOTIDINE 20 MG TABLET PO SCH (21:37)
[2020-10-17 21:44] LABS: CORONAVIRUS 229E-RESP PCR NOT DETECTED; CORONAVIRUS HKU1-RESP PCR NOT DETECTED; CORONAVIRUS NL63-RESP PCR NOT DETECTED; CORONAVIRUS OC43-RESP PCR NOT DETECTED; HUMAN METAPNEUMOVIRUS NOT DETECTED; RHINOVIRUS/ENTEROVIRUS NOT DETECTED; SARS-CoV-2 -RESP PCR PANEL NOT DETECTED
[2020-10-17 21:45] LABS: B. PARAPERTUSSIS- RESP PCR PAN NOT DETECTED; B. PERTUSSIS- RESP PCR PANEL NOT DETECTED; C. PNEUMONIAE- RESP PCR PANEL NOT DETECTED; INFLUENZA A- RESP PCR PANEL NOT DETECTED; INFLUENZA B - RESP PCR PANEL NOT DETECTED; M. PNEUMONIAE- RESP PCR PANEL NOT DETECTED; PARAINFLUENZA VIRUS 1 NOT DETECTED; PARAINFLUENZA VIRUS 2 NOT DETECTED; PARAINFLUENZA VIRUS 3 NOT DETECTED; PARAINFLUENZA VIRUS 4 NOT DETECTED; RSV- RESP PCR PANEL NOT DETECTED
[2020-10-17] MEDS: BUDESONIDE 0.5 MG/2 ML NEB INH SCH (22:00)
[2020-10-17] MEDS: FORMOTEROL FUMARATE NEB 20 MCG/2 ML INH SCH (22:00)
[2020-10-17] MEDS: LACTATED RINGERS 1,000 ML IV SCH (22:21)
--- NOTE | 2020-10-17 22:46 | HISTORY & PHYSICAL EXAMINATION ---
DATE OF SERVICE: 10/17/2020 Physician: Cyndy Preciado MD HISTORY OF PRESENT ILLNESS: This is a 75-year-old white female with a history of sarcoidosis, pulmonary hypertension, paroxysmal tachyarrhythmia. Approximately six to eight months ago, she saw her sifter and miller and was advised that she may use metoprolol on a p.r.n. basis when she gets strong palpitations that cause her to feel "chest pain." She gets this rarely, approximately once every two months. Normally, she gets palpitations that are very light and she can wait for them to subside on their own, but only with strong palpitations she takes metoprolol. This happened today, and she took a metoprolol dose. This made the palpitations and chest pain subside, but then the chest pain recurred and she was on her way walking to get another dose of metoprolol when she got dizzy and had syncope. She was brought to the emergency room. She told the emergency room doctor that she does not check her vital signs before taking metoprolol. In the recent weeks, she has had a bout of diarrhea for several days for which she takes Lomotil and is now improved. She has a history of chronic diarrhea for the past 15 years for which she needs Lomotil, and can get incontinent of her stool. She was only seen once many years ago by a GI specialist, who offered her some type of surgery, which she declined, and therefore she uses this Lomotil for management of the diarrhea. She has never had syncope before. She has had two stress tests in the past, the most recent was approximately 3 years ago and was within normal limits. She also has had a cardiac catheterization, she states. She was described about EP ablation, but thought that this involved some type of general surgery. She was told never to have surgery with general anesthesia because of her lungs. She describes a history of ARDS, which she had about 15 years ago and after that was told that her lungs are so bad that she should not have the general surgery. She is currently comfortable in bed, eating a sandwich, wearing oxygen by nasal cannula. PAST MEDICAL HISTORY 1. Sarcoidosis. 2. Pulmonary hypertension. 3. PSVT. 4. Chronic diarrhea. ALLERGIES 1. NITROFURANTOIN. 2. CLARITHROMYCIN. MEDICATIONS 1. Tylenol Extra Strength p.r.n. pain. 2. Albuterol HFA every 4 hours p.r.n. 3. Vitamin C 1 tab daily. 4. Vitamin D3 one tab daily. 5. Calcium 1 tab b.i.d. 6. Vitamin B12 1000 mcg daily. 7. Multivitamin daily. 8. Leola-3 fish oil 1 capsule q.i.d. 9. Vitamin B2 4 tablets daily. 10. Trazodone 50 mg daily. 11. Tadalafil 20 mg b.i.d. 12. Remeron 15 mg daily. 13. Lomotil t.i.d. all the way up to 8 times a day p.r.n. diarrhea. 14. Gabapentin 200 mg t.i.d. 15. Lasix 20 mg daily. 16. Perforomist inhaler b.i.d. 17. Cymbalta 30 mg every night. 18. Diltiazem CD 180 mg daily. 19. Plavix 75 mg daily. 20. Pulmicort inhaler b.i.d. 21. Lipitor 20 mg every night. 22. Metoprolol tartrate 50 mg daily p.r.n. palpitations. 23. Triamcinolone cream p.r.n. 24. Sucralfate 1 gram q.i.d. p.r.n. GERD. 25. Protonix 40 mg b.i.d. REVIEW OF SYSTEMS: A comprehensive review of systems was performed and the pertinent positives are listed, the rest are negative. FAMILY HISTORY: No inherited diseases. SOCIAL HISTORY: The patient is a nonsmoker who never smoked, drinks alcohol socially. No illicit drug use history. She lives alone. Her . There are several children that are close by. PHYSICAL EXAM GENERAL: Thin, elderly white female. She is in no distress. VITAL SIGNS: Blood pressure supine 116/57, afebrile, room air saturation 93%, increased to 98% on supplemental oxygen. HEENT: Unremarkable. NECK: No JVD at a 30-degree upright angle. CHEST: Clear. Normal air movement. No wheezes or rales. HEART: Distant heart sounds, without audible murmurs. ABDOMEN: Soft, nontender. Normal bowel sounds. EXTREMITIES: No clubbing, cyanosis or edema. NEUROLOGIC: Grossly intact. LABORATORY DATA: Troponins are 5.6 and 7.6. Normal electrolytes, BUN 22, creatinine 1.0, AST 66, ALT 30, lipase normal at 18. White blood count 6.4, hemoglobin 12.2, platelet count normal at 177. No INR was done. No urinalysis was done. The [employer] result is neg for COVID. IMAGING: Chest x-ray; bilateral infiltrates, which are similar to what she has had in many past XRays, consistent with her sarcoidosis diagnosis. EKG: Normal sinus rhythm, rate of 67 with inverted T-wave in lead III and aVF. IMPRESSION 1. Syncope, which is likely related to volume depletion from recent diarrhea and having taken the dose of metoprolol. 2. Prerenal azotemia, which is likely from her recent, intermittent and longstanding diarrhea. 3. Palpitations, which have been documented presumably as her PSVT. 4. Chest pain, atypical, only occurs with her palpitations. 5. Cor pulmonale by her last Echo done three years ago. 6. Pulmonary hypertension with PA pressure 73 mmHg by Echo done three years ago. 7. Sarcoidosis, uses home oxygen at night, and followed by Dr. Rivero of Pulmonary, in [facility]. 8. Abnormal EKG. 9. Paroxysmal supraventricular tachycardia history and followed by Dr. Salgado, Cardiology, in [place]. 10. Chronic diarrhea. PLAN: Place the patient in Observation status on telemetry. Check orthostatic vital signs. Compression stockings chronically may be needed, if she is orthostatic. Begin IV hydration. Obtain an Echo to reevaluate LV and RV contractility and PA pressure. Hold the Lasix. Continue with her other medications. Check a TSH to rule ut hyperthyroidism. The patient would be a good candidate for SVT ablation by ER, and I discussed with her that ablation does not include general anesthesia and is not a type of surgery. Otherwise, she needs education on how to use metoprolol; to check her vital signs before she takes it with holding parameters ordered. Lasix may not need to be used daily since she has no edema and it is adding to her volume depletion and signs of prerenal azotemia. New GI evaluation as an outpatient is recommended to help her manage her chronic diarrhea. CODE STATUS: FULL CODE. DEEP VENOUS THROMBOSIS PROPHYLAXIS: Compression stockings and SCDs. ATTESTATION: Patient is expected to be discharged or transferred to another facility within 96 hours: Yes. cc: DO Francisco Javier Lizarraga MD Doyle, TD: 10/17/2020 21:50 [email or web address]
[2020-10-18] MEDS: SODIUM CHLORIDE FLUSH 0.9% 10 ML SYRINGE IVP SCH ×4 (04:20→23:37)
[2020-10-18 04:59] LABS: ALBUMIN 3.3 g/dL (3.2-5.5); ALBUMIN/GLOBULIN RATIO 1.3 (1.0-2.2); BILIRUBIN,TOTAL 0.6 mg/dL (0.2-1.0); CALCIUM 8.6 mg/dL (8.5-10.3); CREATININE 0.7 mg/dL (0.4-1.0); POTASSIUM 3.8 mmol/L (3.5-5.0); TOTAL PROTEIN 5.8 g/dL (6.7-8.2)
[2020-10-18] MEDS: GABAPENTIN 100 MG CAPSULE PO SCH ×3 (05:25→20:48)
[2020-10-18] MEDS: FORMOTEROL FUMARATE NEB 20 MCG/2 ML INH SCH ×2 (07:27→21:39)
[2020-10-18] MEDS: BUDESONIDE 0.5 MG/2 ML NEB INH SCH ×2 (07:27→21:39)
[2020-10-18] MEDS ORDERED: MIRTAZAPINE 15 MG TABLET PO SCH (09:00)
[2020-10-18] MEDS ORDERED: FUROSEMIDE 20 MG TABLET PO SCH (09:00)
[2020-10-18] MEDS ORDERED: traZODone 50 MG TABLET PO SCH (09:00)
[2020-10-18] MEDS: CLOPIDOGREL 75 MG TABLET PO SCH (09:01)
[2020-10-18] MEDS: TADALAFIL 20 MG PO SCH ×2 (09:02→16:26)
[2020-10-18] MEDS: FAMOTIDINE 20 MG TABLET PO SCH ×2 (09:02→20:48)
[2020-10-18] MEDS: LACTATED RINGERS 1,000 ML IV SCH ×2 (10:14→23:36)
[2020-10-18] MEDS: diltiaZEM CD 180 MG CAPSULE PO SCH (10:14)
--- NOTE | 2020-10-18 12:35 | PHARMACY PROGRESS NOTE ---
- Best Possible Medication History Admit Date and Time: 10/17/202015 Processed by: Nursing Medication History completed: Yes Patient Interview: Completed Secondary Source(s): Written medication list, Insurance records Med list updated and confirmed by ED RN As the person ultimately responsible for medication therapy, providers are able to order a medication from an existing home medication list in [facility] via the "Reconcile Routine" prior to Confirmation of that medication by production support specialist. Such practice is discouraged except when the physician, in their clinical judgment, deems that a medical need exists for a medication without regard to previous use.
--- NOTE | 2020-10-18 13:21 | PROVIDER PROGRESS NOTE ---
Assessment/Plan - Problem List (1) Syncope Assessment/Plan: This was likely due to patient taking metoprolol in setting of hypotension from diarrhea related hypovolemia. Patient receiving IV hydration with normal saline at 83ml/hr. Initially orthostatic vitals were positive. However recheck later in the afternoon have been negative. 2D echo showed left cavity ventricular size decreased. Left ventricular wall thickness is normal. Overall left ventricular systolic function is normal with an ejection fraction of 60 to 65%. Impaired relaxation consistent with grade 1 diastolic dysfunction. No regional wall motion abnormalities is seen. The left ventricular septal wall is flattened in diastole and systole which is consistent with right ventricular volume and pressure overload. Right ventricular enlargement is mild. Right ventricular systolic function is normal. There is mild right atrial enlargement. There is no evidence of aortic stenosis or aortic regurgitation. The RVSP at rest is 85 mmHg. As compared to prior echo the pulmonary artery systolic pressure has increased. There is no pericardial effusion noted. There is no mass or thrombus identified. There is no pleural effusion noted. (2) Chest pain Qualifiers: Chest pain type: unspecified Qualified Code(s): R07.9 - Chest pain, unspecified Assessment/Plan: Patient appeared to be in significant discomfort at time of exam. She complained of chest pressure. As a result decision was made to continue monitoring her. Troponin was repeated x1 more and was normal. EKG was sinus rhythm with borderline T abnormalities in the inferior leads. Could not administer nitroglycerin sublingual because the patient is on tadalafil for pulmonary hypertension. The patient is on Plavix 75 mg p.o. daily. Will continue. Patient's cardiac cath was in October 2019. We will consider a stress test in the morning. (3) Pulmonary hypertension Assessment/Plan: On tadalafil 40 mg p.o. daily. Will continue. (5) Paroxysmal SVT (supraventricular tachycardia) Assessment/Plan: On diltiazem CD 180 mg p.o. daily. Will continue, but hold for SBP<100 Metoprolol held for now. (6) Depression Assessment/Plan: On duloxetine and Mirtazapine - Current Meds Current Meds: Current Medications Generic Name Dose Route Start Last Admin Trade Name Freq PRN Reason Stop Dose Admin Atorvastatin Calcium 20 mg 10/17/20 21:00 10/17/20 21:36 Atorvastatin 10 Mg Tablet PO 20 mg QPM SITA Administration Budesonide 0.5 mg 10/17/20 21:00 10/18/20 07:27 Budesonide 0.5 Mg/2 Ml Neb INH 0.5 mg BID SITA Administration Clopidogrel Bisulfate 75 mg 10/18/20 09:00 10/18/20 09:01 Clopidogrel 75 Mg Tablet PO 75 mg DAILY SITA Administration Diltiazem HCl 180 mg 10/18/20 09:00 10/18/20 10:14 Diltiazem Cd 180 Mg Capsule PO Not Given DAILY SITA Duloxetine HCl 30 mg 10/17/20 21:00 10/17/20 21:36 Duloxetine 30 Mg Capsule PO 30 mg QPM SITA Administration Famotidine 20 mg 10/17/20 21:00 10/18/20 09:02 Famotidine 20 Mg Tablet PO 20 mg BID SITA Administration Formoterol Fumarate 20 mcg 10/17/20 21:00 10/18/20 07:27 Formoterol Fumarate Neb 20 Mcg/2 Ml INH 20 mcg BID SITA Administration Furosemide 20 mg 10/18/20 09:00 10/18/20 10:14 Furosemide 20 Mg Tablet PO Not Given DAILY SITA Gabapentin 200 mg 10/17/20 22:00 10/18/20 05:25 Gabapentin 100 Mg Capsule PO 200 mg TID SITA Administration Lactated Ringer's 1,000 mls @ 83.33 mls/hr 10/17/20 22:19 10/18/20 10:14 Lr IV 83.33 mls/hr .Q12H1M SITA Administration Mirtazapine 15 mg 10/18/20 09:00 10/18/20 09:02 Mirtazapine 15 Mg Tablet PO 15 mg DAILY SITA Administration Non-Formulary Medication 20 mg 10/17/20 21:00 10/18/20 09:02 Tadalafil [Alyq] PO Not Given BID SITA Sodium Chloride 10 ml 10/18/20 01:00 10/18/20 09:02 Sodium Chloride Flush 0.9% 10 Ml Syringe IVP Not Given 0100,0900,1700 SITA Trazodone HCl 50 mg 10/18/20 09:00 10/18/20 09:02 Trazodone 50 Mg Tablet PO 50 mg DAILY SITA Administration - Lab Result Fish Bone Diagrams: 10/17/20 18:40 10/18/20 04:38 - Additional Planning My Orders: My Active Orders 10/18/20 13:19 EKG - Electrocardiogram [RC] .ONCE 10/18/20 13:20 TROPONIN I HIGH SENSITIVITY [IAI] Stat Subjective - Subjective Patient Reports: Other (Patient appeared to be in significant discomfort at time of exam. She complained of frequent and persistent chest pressure. It seem worse with exertion. She denied any other complains. She has a significant cough) Objective Vital Signs: Vital Signs - 24 hr 10/17/20 10/17/20 10/17/20 18:19 18:53 20:22 Temperature 36.0 C L 36.5 C Heart Rate 71 61 60 Heart Rate [ Brachial] Heart Rate [ Monitoring electrodes] Respiratory 16 16 16 Rate Blood Pressure 129/42 L 107/49 L 102/48 L Blood Pressure [Left Brachial artery] Blood Pressure [Right Brachial artery] O2 Saturation 96 98 97 10/17/20 10/17/20 10/18/20 21:10 22:00 00:52 Temperature 36.6 C 36.4 C L Heart Rate 76 Heart Rate [ Brachial] Heart Rate [ 67 73 Monitoring electrodes] Respiratory 14 18 19 Rate Blood Pressure Blood Pressure 116/57 L [Left Brachial artery] Blood Pressure 102/66 [Right Brachial artery] O2 Saturation 93 93 10/18/20 10/18/20 10/18/20 05:00 05:30 07:29 Temperature 36.3 C L Heart Rate 70 Heart Rate [ 58 L 59 L Brachial] Heart Rate [ Monitoring electrodes] Respiratory 16 18 Rate Blood Pressure Blood Pressure [Left Brachial artery] Blood Pressure 107/41 L 100/39 L [Right Brachial artery] O2 Saturation 93 10/18/20 09:01 Temperature 36.3 C L Heart Rate Heart Rate [ 72 Brachial] Heart Rate [ Monitoring electrodes] Respiratory 16 Rate Blood Pressure Blood Pressure [Left Brachial artery] Blood Pressure 105/40 L [Right Brachial artery] O2 Saturation 93 Oxygen O2 Source Room air I&O (Last 24 Hrs): Intake and Output Totals x24h 10/16/20 10/17/20 10/18/20 22:59 23:59 23:59 Intake Total 1350.238 Balance 1350.238 General: Alert, Oriented x3, Cooperative, Mild distress, Moderate distress HEENT: PERRLA, EOMI Neck: Supple, No JVD Lymphatic: no adenopathy Neuro: Alert, Disoriented, Non Focal, Oriented Times 3 Cardiovascular: Regular rate, Normal S1, Normal S2 Respiratory: Wheezes, Rhonchi Abdomen: Normal bowel sounds, Soft, No tenderness Extremities: No clubbing, No cyanosis, No edema Skin: No rashes, No breakdown - Results Results: Laboratory Results WBC 6.4 x10^3/uL (4.8-10.8) 10/17/20 18:40 RBC 3.96 10^6/uL (4.20-5.40) L 10/17/20 18:40 Hgb 12.1 g/dL (12.0-16.0) 10/17/20 18:40 Hct 37.2 % (37.0-47.0) 10/17/20 18:40 MCV 93.9 fL (81.0-99.0) 10/17/20 18:40 MCH 30.6 pg (27.0-31.0) 10/17/20 18:40 MCHC 32.5 g/dL (32.0-36.0) 10/17/20 18:40 RDW 14.6 % (12.0-15.0) 10/17/20 18:40 Plt Count 177 10^3/uL (130-450) 10/17/20 18:40 MPV 10.2 fL (7.9-10.8) 10/17/20 18:40 Neut # (Auto) 5.1 10^3/uL (1.5-6.6) 10/17/20 18:40 Lymph # (Auto) 0.7 10^3/uL (1.5-3.5) L 10/17/20 18:40 Hettinger # (Auto) 0.4 10^3/uL (0.0-1.0) 10/17/20 18:40 Eos # (Auto) 0.2 10^3/uL (0.0-0.7) 10/17/20 18:40 Baso # (Auto) 0.0 10^3/uL (0.0-0.1) 10/17/20 18:40 Absolute Nucleated RBC 0.00 x10^3/uL 10/17/20 18:40 Band Neuts % (Manual) Not Reportable 10/17/20 18:40 Abnorm Lymph % (Manual) Not Reportable 10/17/20 18:40 Nucleated RBC % 0.0 /100WBC 10/17/20 18:40 Neutrophils # (Manual) Not Reportable 10/17/20 18:40 Lymphocytes # (Manual) Not Reportable 10/17/20 18:40 Monocytes # (Manual) Not Reportable 10/17/20 18:40 Eosinophils # (Manual) Not Reportable 10/17/20 18:40 Basophils # (Manual) Not Reportable 10/17/20 18:40 Differential Comment MANUAL=AUTO DIFF 10/17/20 18:40 Platelet Estimate NORMAL (130-450,000) (NORMAL) 10/17/20 18:40 Platelet Morphology NORMAL APPEARANCE (NORMAL) 10/17/20 18:40 RBC Morph Micro Appear NORMAL APPEARANCE (NORMAL) 10/17/20 18:40 Sodium 138 mmol/L (135-145) 10/18/20 04:38 Potassium 3.8 mmol/L (3.5-5.0) 10/18/20 04:38 Chloride 106 mmol/L (101-111) 10/18/20 04:38 Carbon Dioxide 24 mmol/L (21-32) 10/18/20 04:38 Anion Gap 8.0 (6-13) 10/18/20 04:38 BUN 20 mg/dL (6-20) 10/18/20 04:38 Creatinine 0.7 mg/dL (0.4-1.0) 10/18/20 04:38 Estimated GFR (MDRD) 81 (>89) L 10/18/20 04:38 Glucose 95 mg/dL (70-100) 10/18/20 04:38 Calcium 8.6 mg/dL (8.5-10.3) 10/18/20 04:38 Total Bilirubin 0.6 mg/dL (0.2-1.0) 10/18/20 04:38 AST 73 IU/L (10-42) H 10/18/20 04:38 ALT 39 IU/L (10-60) 10/18/20 04:38 Alkaline Phosphatase 79 IU/L (42-121) 10/18/20 04:38 Troponin I High Sens 7.6 ng/L (2.3-14.8) 10/17/20 20:27 Total Protein 5.8 g/dL (6.7-8.2) L 10/18/20 04:38 Albumin 3.3 g/dL (3.2-5.5) 10/18/20 04:38 Globulin 2.5 g/dL (2.1-4.2) 10/18/20 04:38 Albumin/Globulin Ratio 1.3 (1.0-2.2) 10/18/20 04:38 Lipase 18 U/L (22-51) L 10/17/20 18:40 TSH 0.77 uIU/mL (0.34-5.60) 10/18/20 04:38 Nasal Adenovirus (PCR) NOT DETECTED 10/17/20 20:50 Nasal B. parapertussis DNA (PCR) NOT DETECTED 10/17/20 20:50 Nasal Coronavir 229E PCR NOT DETECTED 10/17/20 20:50 Nasal Coronavir HKU1 PCR NOT DETECTED 10/17/20 20:50 Nasal Coronavir NL63 PCR NOT DETECTED 10/17/20 20:50 Nasal Coronavir OC43 PCR NOT DETECTED 10/17/20 20:50 Nasal Enterovir/Rhinovir PCR NOT DETECTED 10/17/20 20:50 Nasal Influenza B PCR NOT DETECTED 10/17/20 20:50 Nasal Influenza A PCR NOT DETECTED 10/17/20 20:50 Nasal Parainfluen 1 PCR NOT DETECTED 10/17/20 20:50 Nasal Parainfluen 2 PCR NOT DETECTED 10/17/20 20:50 Nasal Parainfluen 3 PCR NOT DETECTED 10/17/20 20:50 Nasal Parainfluen 4 PCR NOT DETECTED 10/17/20 20:50 Nasal RSV (PCR) NOT DETECTED 10/17/20 20:50 Nasal B.pertussis DNA PCR NOT DETECTED 10/17/20 20:50 Nasal C.pneumoniae (PCR) NOT DETECTED 10/17/20 20:50 Sushant Human Metapneumo PCR NOT DETECTED 10/17/20 20:50 Nasal M.pneumoniae (PCR) NOT DETECTED 10/17/20 20:50 Nasal SARS-CoV-2 (PCR) NOT DETECTED 10/17/20 20:50 ABX Reporting Has patient been on IV antibiotics over the past 48 hours?: No
[2020-10-18] MEDS ORDERED: diltiaZEM CD 180 MG CAPSULE PO ONE (16:30)
[2020-10-18] MEDS: ATORVASTATIN 10 MG TABLET PO SCH (20:47)
[2020-10-18] MEDS: DULoxetine 30 MG CAPSULE PO SCH (20:48)
[2020-10-19] MEDS: GABAPENTIN 100 MG CAPSULE PO SCH ×2 (05:45→14:15)
[2020-10-19] MEDS: FORMOTEROL FUMARATE NEB 20 MCG/2 ML INH SCH (07:45)
[2020-10-19] MEDS: BUDESONIDE 0.5 MG/2 ML NEB INH SCH (07:45)
[2020-10-19 08:19] LABS: BASOPHILS % (AUTO) 0.4 %; EOSINOPHILS # (AUTO) 0.1 10^3/uL (0.0-0.7); EOSINOPHILS % (AUTO) 2.4 %; HCT - HEMATOCRIT 39.9 % (37.0-47.0); HGB - HEMOGLOBIN 12.8 g/dL (12.0-16.0); LYMPHOCYTES # (AUTO) 1.1 10^3/uL (1.5-3.5); LYMPHOCYTES % (AUTO) 22.4 %; MEAN CORPUSCULAR HEMOGLOBIN 30.3 pg (27.0-31.0); MEAN CORPUSCULAR HGB CONC 32.1 g/dL (32.0-36.0); MEAN CORPUSCULAR VOLUME 94.3 fL (81.0-99.0); MEAN PLATELET VOLUME 9.6 fL (7.9-10.8); MONOCYTES # (AUTO) 0.5 10^3/uL (0.0-1.0); MONOCYTES % (AUTO) 9.3 %; NEUTROPHILS # (AUTO) 3.3 10^3/uL (1.5-6.6); NEUTROPHILS % (AUTO) 65.3 %; PLT - PLATELET COUNT 153 10^3/uL (130-450); RED BLOOD COUNT 4.23 10^6/uL (4.20-5.40); RED CELL DISTRIBUTION WIDTH 14.8 % (12.0-15.0); WHITE BLOOD COUNT 5.1 x10^3/uL (4.8-10.8)
[2020-10-19 08:33] LABS: CALCIUM 8.4 mg/dL (8.5-10.3); CREATININE 0.7 mg/dL (0.4-1.0); POTASSIUM 3.5 mmol/L (3.5-5.0)
[2020-10-19] MEDS ORDERED: BENZONATATE 100 MG CAPSULE PO PRN (08:36)
[2020-10-19] MEDS ORDERED: LACTOBACILLUS RHAMNOSUS GG CAPSULE PO SCH (09:00)
--- NOTE | 2020-10-19 10:08 | Discharge Plan ---
Discharge Plan Problem Reviewed?: Yes Disposition: Home, Self Care Condition: Stable Prescriptions: Benzonatate [Tessalon] 100 mg PO TID PRN #21 cap PRN Reason: Cough Diet: Cardiac Activity Restrictions: Activity as Tolerated Health Concerns: You were seen in the hospital because you may have passed out at home. We found that your blood pressure was low at times when you stand up. This is likely why you passed out at home. This may have been due to dehydration as you are on Lasix and you were having diarrhea at home. You did have chest pain while you were here in the hospital. Work-up did not suggest a heart attack as your heart numbers were normal and your EKG was unremarkable. An ultrasound of your heart continues to show evidence of pulmonary hypertension. Your pressures are slightly elevated compared to before. It is important that you continue to take your medications are prescribed by your heat transfer technician and to continue to follow-up. Plan of Treatment: We recommend you continue to take diltiazem but stopped taking metoprolol. The diltiazem will help with the palpitations you occasionally have. The metoprolol can lower your blood pressure especially if you are already taking diltiazem so please stop taking the metoprolol. You may continue to take your Lasix but please take this every other day rather than every day until you follow-up with your primary care provider or your heat transfer technician. Care Goals: The goal is to prevent further episodes of passing out and to slow down the progression of your pulmonary hypertension. Assessment: The patient expressed understanding of the treatment plan. Additional Instructions or Follow Up instructions: Follow-up with your primary care provider in 1 week and it is recommended that you follow-up with your heat transfer technician. Please return to the emergency department if you develop chest pain, episode of passing out, shortness of breath. Follow-Up Care: [facility] - Pulmonary No Smoking: If you smoke, Please STOP! Call for help. Follow-up with: Nancy Ortiz DO [Primary Care Provider] -
--- NOTE | 2020-10-19 10:20 | DISCHARGE SUMMARY ---
Discharge Summary Admit Date: 10/17/20 Discharge Date: 10/19/20 Discharging Provider: Jaime Fuentes Primary Care Provider: Nancy Ortiz Code Status: Attempt Resuscitation Condition at Discharge: Stable Discharge Disposition: 01 Home, Self Care - DIAGNOSES Admission Diagnoses: Syncope Prerenal azotemia Palpitations, presumed to be PSVT Chest pain, atypical Cor pulmonale Pulmonary hypertension Sarcoidosis Normal EKG Paroxysmal supraventricular tachycardia Chronic diarrhea Discharge Diagnoses with Status of Each Condition: Syncope - resolved. Orthostatic hypotension - resolved. Chest pain - resolved. Cor pulmonale - stable Pulmonary hypertension - worsening but stable. History of sarcoidosis - stable. Obstructive sleep apnea not on CPAP - stable. Paroxysmal supraventricular tachycardia - stable. Acute kidney injury - resolved. - HPI History of Present Illness: Per H&P of Dr. Archer on 10/17/20: This is a 75-year-old white female with a history of sarcoidosis, pulmonary hypertension, paroxysmal tachyarrhythmia. Approximately 6 to 8 months ago, she saw her indoor plant technician and was advised that she may use metoprolol on a as needed basis when she gets strong palpitations that cause her to feel "chest pain." She gets this rarely, approximately once every 2 months. Normally, she gets palpitations that are very light and she can wait for them to subside on their own, but only with strong palpitations she takes metoprolol. This happened today, and she took a metoprolol dose. This made the palpitations and chest pain subside, but then the chest pain recurred and she was on her way walking take another dose of metoprolol when she got dizzy and had syncope. She was brought to the emergency room. She told the emergency room doctor that she does not check her vital signs before taking metoprolol. In the recent weeks, she has had a bout of diarrhea for several days for which she takes Lomotil and is now improved. She is a history of chronic diarrhea for the past 15 years for which she needs Lomotil, and can get incontinent of her stool. She was only seen once many years ago by a GI specialist, who offered her some type of surgery, which she declined, and therefore she uses this Lomotil for management of the diarrhea. She has never had syncope before. She has had 2 stress tests in the past, the most recent was approximately 3 years ago and was within normal limits. She also had a cardiac catheterization, she states. She was described about EP ablation, but thought this involved some type of general surgery. She was told never to have surgery with general anesthesia because of her lungs. She describes a history of ARDS, which she had about 15 years ago and after that was told that her lungs are so bad that she should not have a general surgery. She is currently comfortable in bed, eating a sandwich, wearing oxygen by nasal cannula. - CONSULTS | PROCEDURES Procedures: Preliminary echocardiogram report reveals an ejection fraction of 60 to 65%. Impaired relaxation consistent with grade 1 diastolic dysfunction. No regional wall motion abnormalities are seen. Left ventricular septal wall is slight in diastole and systole which is consistent with right ventricular volume and pressure overload. There is mild right ventricular enlargement. The right ventricular systolic function is normal. The RVSP at rest is 85 mmHg. This is increased from 73 mmHg back in September 2017. - HOSPITAL COURSE Hospital Course: She was admitted under observation for possible syncope. She was monitored on telemetry where she remained in a sinus rhythm throughout her hospitalization. Orthostatics were checked and these were initially found to be positive. Her home Lasix was held and she was treated with IV fluids with resolution of the orthostasis. She then developed chest pain and repeat EKG continued to show nonspecific changes. Her troponins were trended and these were unremarkable. She was observed overnight and has had no further episodes of chest pain. I attempted to contact her library media technician, Dr. Rivero but unfortunate she was not available. I was able to speak with her colleague and we reviewed the patient's prior records. Her new echocardiogram is concerning for worsening pulmonary hypertension but she will likely need an outpatient right heart cath to confirm this. The patient is being treated for pulmonary hypertension thought to be sec ondary to her sarcoidosis. I asked them to review prior imaging as we do not have imaging except for 2015 chest x-ray and a CT from 2018. Her most recent imaging back in 2019 continue to reveal bilateral infiltrates most prominent in the right upper and middle lobe. Pulmonology agreed with outpatient follow-up once the patient is discharged. I discussed this with the patient and she is in agreement. She had been seeing pulmonary rehab and I placed a new referral for this. I also informed the patient that although her chest x-ray is abnormal, we do not suspect pneumonia given the lack of white count, fever, dyspnea. These x-ray findings are likely chronic given her prior imaging. I did update the patient's daughter to discuss the patient's current condition and plan on discharge. I have asked the patient to resume her Lasix but to take it every other day until she follows up with either her primary care provider or her library media technician. I have also asked her to stop taking metoprolol and to just continue the diltiazem. - ALLERGIES Allergies/Adverse Reactions: Allergies Allergy/AdvReac Type Severity Reaction Status Date / Time nitrofurantoin Allergy Unknown Rash Verified 10/17/20 18:23 [From Macrobid] nitrofurantoin Allergy Unknown Rash Verified 10/17/20 18:23 macrocrystalline * [From Macrobid] clarithromycin [From Biaxin] AdvReac Severe Emesis Verified 10/17/20 18:23 - MEDICATIONS Home Medications: Ambulatory Orders Medication Instructions Recorded Confirmed Aspirin/Acetaminophen/Caffeine 1 cap PO DAILY PRN 07/11/13 10/17/20 [Excedrin Migraine Geltab] Atorvastatin Calcium [Lipitor] 20 mg PO QPM 07/11/13 10/17/20 Clopidogrel [Plavix] 75 mg PO DAILY 07/11/13 10/17/20 DULoxetine [Cymbalta] 30 mg PO QPM 07/11/13 10/17/20 Pantoprazole Sodium 40 mg PO BID 07/11/13 10/17/20 Riboflavin (Vitamin B2) [Vitamin 4 tab PO DAILY 07/11/13 10/17/20 B-2] Sucralfate 1 gm PO QID PRN 07/11/13 10/17/20 Albuterol Sulfate [Albuterol 2 puffs IH Q4HR PRN 03/14/20 10/17/20 Sulfate Hfa] Ascorbic Acid [Vitamin C] 1 tab PO DAILY 03/14/20 10/17/20 Calcium Carbonate [Calcium] 1 tab PO BID 03/14/20 10/17/20 Cholecalciferol (Vitamin D3) 1 tab PO DAILY 03/14/20 10/17/20 [Vitamin D3] Diltiazem HCl [Diltiazem 24Hr ER] 180 mg PO DAILY 03/14/20 10/17/20 Furosemide 20 mg PO DAILY 03/14/20 10/17/20 Gabapentin 200 mg PO TID 03/14/20 10/17/20 Loperamide HCl [Imodium A-D] 2 mg PO TID 03/14/20 10/17/20 Multivitamin [Multivitamins] 1 cap PO DAILY 03/14/20 10/17/20 [place]-3/Dha/Epa/Fish Oil [Fish Oil 1 cap PO QID 03/14/20 10/17/20 [place]-3 EC 1,200 mg] Tadalafil [Alyq] 20 mg PO BID 03/14/20 10/17/20 Acetaminophen [Acetaminophen Extra 500 mg PO PRN 10/17/20 Strength] Budesonide [Pulmicort] 1 inh INH BID 10/17/20 10/17/20 Cyanocobalamin [Vitamin B-12] 1 ml INJ 10/17/20 Formoterol Fumarate [Perforomist] 1 drops INH BID 10/17/20 10/17/20 Mirtazapine [Remeron] 15 mg PO QPM 10/17/20 10/18/20 Triamcinolone 0.1% Cream [Kenalog 10/17/20 0.1% Cream] Benzonatate [Tessalon] 100 mg PO TID PRN #21 cap 10/19/20 - PHYSICAL EXAM AT DISCHARGE General Appearance: positive: No acute distress, Alert Eyes Bilateral: positive: Normal inspection, Conjunctivae nml ENT: positive: ENT inspection nml, Other (Nasal Cannula in place) Neck: positive: Nml inspection Respiratory: positive: No respiratory distress, Other (Faint crackles bilaterall y.). negative: Wheezes, Rales Cardiovascular: positive: Regular rate & rhythm, No murmur. negative: Tachycardia Abdomen: positive: Non-tender, No distention. negative: Tenderness Extremities: positive: Full ROM, No pedal edema Neurologic/Psychiatric: positive: Oriented x3. negative: Disoriented to person, Disoriented to place Physical Exam Other/Comments: Vital Signs - 24 hr 10/18/20 10/18/20 10/18/20 13:50 16:15 20:45 Temperature 36.6 C 36.3 C L Heart Rate 78 Heart Rate [ 82 72 Brachial] Respiratory 16 18 20 Rate Blood Pressure 124/58 L [Left Brachial artery] Blood Pressure 110/46 L [Right Brachial artery] O2 Saturation 93 96 10/18/20 10/19/20 10/19/20 20:54 00:16 05:00 Temperature 36.4 C L 36.2 C L 36.4 C L Heart Rate Heart Rate [ 78 68 66 Brachial] Respiratory 18 18 18 Rate Blood Pressure [Left Brachial artery] Blood Pressure 151/73 H 122/50 L 127/49 L [Right Brachial artery] O2 Saturation 97 95 93 10/19/20 10/19/20 10/19/20 07:48 08:28 10:56 Temperature 36.5 C 36.5 C Heart Rate 68 63 Heart Rate [ 63 Brachial] Respiratory 20 18 22 Rate Blood Pressure [Left Brachial artery] Blood Pressure 125/53 L [Right Brachial artery] O2 Saturation 96 96 10/19/20 12:14 Temperature 36.5 C Heart Rate Heart Rate [ 76 Brachial] Respiratory 16 Rate Blood Pressure [Left Brachial artery] Blood Pressure 132/56 H [Right Brachial artery] O2 Saturation 92 Oxygen O2 Source Room air - LABS Result Diagrams: 10/19/20 08:16 10/19/20 08:16 - DIAGNOSTIC IMAGING Diagnostic Imaging Results: Final report reviewed Diagnostic Imaging Results Comments: Chest x-ray on [id number] revealed moderate multifocal patchy bilateral airspace opacities. This was read as moderate bilateral pneumonia by radiology. This appears relatively unchanged compared to prior chest x-ray from 2015. - FOLLOW UP Follow Up: She was asked to follow-up with her primary care provider in 1 week and with her library media technician. - TIME SPENT Time Spent in Discharge (Minutes): 35
[2020-10-19] MEDS: TADALAFIL 20 MG PO SCH (10:23)
[2020-10-19] MEDS: FAMOTIDINE 20 MG TABLET PO SCH (10:24)
[2020-10-19] MEDS: CLOPIDOGREL 75 MG TABLET PO SCH (10:24)
[2020-10-19] MEDS: diltiaZEM CD 180 MG CAPSULE PO SCH (10:24)
[2020-10-19] MEDS: SODIUM CHLORIDE FLUSH 0.9% 10 ML SYRINGE IVP SCH (10:24)
[2020-10-19 12:15] VITALS: BP 132/56
[2020-10-19] MEDS ORDERED: MIRTAZAPINE 15 MG TABLET PO SCH (21:00)
== END 2020-10-19 14:30 | disposition home or self-care (01) | DRG 312 ==
LOC: ED 18:15 → MS2 20:16 → OBSVTOIN 10-18 13:37
PROVIDERS: ADMIT Internal Medicine; ATTEND Internal Medicine
DX: R07.89 Other chest pain (principal); R55 Syncope and collapse; I95.1 Orthostatic hypotension; R00.2 Palpitations; I47.1 Supraventricular tachycardia; N17.9 Acute kidney failure, unspecified; R79.89 Other specified abnormal findings of blood chemistry; R07.9 Chest pain, unspecified; R94.31 Abnormal electrocardiogram [ECG] [EKG]; I27.81 Cor pulmonale (chronic); I27.20 Pulmonary hypertension, unspecified; D86.9 Sarcoidosis, unspecified; G47.33 Obstructive sleep apnea (adult) (pediatric); K52.9 Noninfective gastroenteritis and colitis, unspecified; Z79.01 Long term (current) use of anticoagulants; Z79.899 Other long term (current) drug therapy; Z20.822 Contact with and (suspected) exposure to COVID-19; I51.9 Heart disease, unspecified; F32.9 Major depressive disorder, single episode, unspecified; E86.9 Volume depletion, unspecified
CPT/HCPCS: 36415; 71045; 80048; 80053; 83690; 84443; 84484; 85025; 87631; 93005; 93306; 94640; 99284; 99285; A9270; G0378; J7120; J7626; 0202U

== ENCOUNTER 2021-02-07 06:33 | Emergency (ER) | payer MEDICARE, OTHER ==
[2021-02-07] MEDS ORDERED: LIDOCAINE 1%-EPI 1:100000 20 ML MDV SUBQ STA (07:49)
[2021-02-07] MEDS ORDERED: BACITRACIN ZINC OINT 1 PACKET TOP STA ×2 (07:49→09:53)
[2021-02-07] MEDS ORDERED: ACETAMINOPHEN 325 MG TABLET PO STA (08:06)
--- NOTE | 2021-02-07 08:06 | ED Physician Documentation ---
History of Present Illness - Stated complaint Stated Complaint: FEMALE - Chief complaint Chief Complaint: General - History obtained from History obtained from: Patient - Additonal information Additional information: 75-year-old woman with history of sarcoid, high blood pressure, pulmonary hypertension, presents with groin swelling for the past 6 days, gradual in onset, with worsening pain that is now 7 out of 10, constant, nonradiating, localized to the left side, associated with warmth and redness. She has Had swelling in this area before but it normally drains on its own. Denies fevers, urinary symptoms. Review of Systems Constitutional: denies: Fever GI: denies: Abdominal Pain : reports: Other (Groin pain and swelling). denies: Dysuria Skin: reports: Other (Swelling) PD PAST MEDICAL HISTORY - Past Medical History Past Medical History: Yes Cardiovascular: High cholesterol, Murmur, Arrhythmia Respiratory: Asthma Neuro: None Endocrine/Autoimmune: None GI: GERD, Chronic diarrhea, Chronic constipation, Other : Incontinence, Nocturia HEENT: Other Psych: Depression, ADD/ADHD Musculoskeletal: Fatigue - Past Surgical History Past Surgical History: Yes /CONTENT STRATEGY LEAD: Hysterectomy HEENT: Tonsil/Adenoidectomy - Present Medications Home Medications: Ambulatory Orders Medication Instructions Recorded Confirmed Aspirin/Acetaminophen/Caffeine 1 cap PO DAILY PRN 07/11/13 10/17/20 [Excedrin Migraine Geltab] Atorvastatin Calcium [Lipitor] 20 mg PO QPM 07/11/13 10/17/20 Clopidogrel [Plavix] 75 mg PO DAILY 07/11/13 10/17/20 DULoxetine [Cymbalta] 30 mg PO QPM 07/11/13 10/17/20 Pantoprazole Sodium 40 mg PO BID 07/11/13 10/17/20 Riboflavin (Vitamin B2) [Vitamin 4 tab PO DAILY 07/11/13 10/17/20 B-2] Sucralfate 1 gm PO QID PRN 07/11/13 10/17/20 Albuterol Sulfate [Albuterol 2 puffs IH Q4HR PRN 03/14/20 10/17/20 Sulfate Hfa] Ascorbic Acid [Vitamin C] 1 tab PO DAILY 03/14/20 10/17/20 Calcium Carbonate [Calcium] 1 tab PO BID 03/14/20 10/17/20 Cholecalciferol (Vitamin D3) 1 tab PO DAILY 03/14/20 10/17/20 [Vitamin D3] Diltiazem HCl [Diltiazem 24Hr ER] 180 mg PO DAILY 03/14/20 10/17/20 Furosemide 20 mg PO DAILY 03/14/20 10/17/20 Gabapentin 200 mg PO TID 03/14/20 10/17/20 Loperamide HCl [Imodium A-D] 2 mg PO TID 03/14/20 10/17/20 Multivitamin [Multivitamins] 1 cap PO DAILY 03/14/20 10/17/20 [place]-3/Dha/Epa/Fish Oil [Fish Oil 1 cap PO QID 03/14/20 10/17/20 [place]-3 EC 1,200 mg] Tadalafil [Alyq] 20 mg PO BID 03/14/20 10/17/20 Acetaminophen [Acetaminophen Extra 500 mg PO PRN 10/17/20 Strength] Budesonide [Pulmicort] 1 inh INH BID 10/17/20 10/17/20 Cyanocobalamin [Vitamin B-12] 1 ml INJ 10/17/20 Formoterol Fumarate [Perforomist] 1 drops INH BID 10/17/20 10/17/20 Mirtazapine [Remeron] 15 mg PO QPM 10/17/20 10/18/20 Triamcinolone 0.1% Cream [Kenalog 10/17/20 0.1% Cream] Benzonatate [Tessalon] 100 mg PO TID PRN #21 cap 10/19/20 L.acidoph,Saliva/B.bif/S.therm 175 mg PO QDAC #30 tab 02/07/21 [Acidophilus 175 mg Capsule] clindamycin HCL [Clindamycin HCl] 300 mg PO Q6H #40 cap 02/07/21 - Allergies Allergies/Adverse Reactions: Allergies Allergy/AdvReac Type Severity Reaction Status Date / Time nitrofurantoin Allergy Unknown Rash Verified 10/17/20 18:23 [From Macrobid] nitrofurantoin Allergy Unknown Rash Verified 10/17/20 18:23 macrocrystalline * [From Macrobid] clarithromycin [From Biaxin] AdvReac Severe Emesis Verified 10/17/20 18:23 - Social History Does the pt smoke?: Yes Smoking Status: Current every day smoker Does the pt drink ETOH?: No Does the pt have substance abuse?: No - Immunizations Immunizations are current?: Yes - POLST Patient has POLST: No PD ED PE NORMAL - Vitals Vital signs reviewed: Yes - General General: Alert and oriented X 3, No acute distress, Well developed/nourished - HEENT HEENT: Atraumatic, PERRL, EOMI - Abdomen Abdomen: Non tender, Non distended - Derm Derm: Normal color, Warm and dry, Other (Left 5 x 5 cm fluctuant swelling with overlying cellulitis to the inferior labia majora going towards the perineum) - Neuro Neuro: Alert and oriented X 3 - Psych Psych: Normal mood, Normal affect Results - Vitals Vitals: Vital Signs - 24 hr 02/07/21 07:01 Temperature 36.2 C L Heart Rate 77 Respiratory 18 Rate Blood Pressure 120/54 L O2 Saturation 96 Oxygen O2 Source Room air Procedures - Abscess I&D (location) Other left Preparation: Betadine, Lidocaine 1%, With epi Incision: Incised with scalpel, Purulent drainage, Irrigated, Culture obtained Other: Pt tolerated well, Dressing applied, Antibiotic prescribed PD MEDICAL DECISION MAKING - ED course ED course: 75-year-old woman presented with an abscess to the left labia majora going towards the perineum. d/w Dr. Judge who recommends ED drainage and antibiotics. Impression 1. abscess Departure - Departure Disposition: 01 Home, Self Care Condition: Good Instructions: ED Abscess IandD Follow-Up: Sabas Judge MD [Provider Admit Priv/Credential] - Prescriptions: L.acidoph,Saliva/B.bif/S.therm [Acidophilus 175 mg Capsule] 175 mg PO QDAC #30 tab clindamycin HCL [Clindamycin HCl] 300 mg PO Q6H #40 cap Comments: You were seen in the emergency department for an abscess in the vaginal region. 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 Keep the dressing dry and do not shower for 24 hours. You can change the dressing daily thereafter. If it gets dirty while urinating or defecating then change it immediately and wash off in the shower. Do not take baths until you are fully healed. Return to the emergency department if you start to experience fever, worsening pain in the area, or if you have other concerns. Follow-up for wound check in 48 hours either here or at urgent care. You should also follow-up with Dr. Judge, our PARTS EXPEDITER in 1 week.
[2021-02-07 10:22] VITALS: BP 144/75
== END 2021-02-07 10:23 | disposition home or self-care (01) ==
LOC: ED 06:33
DX: N76.4 Abscess of vulva (principal); F17.200 Nicotine dependence, unspecified, uncomplicated
CPT/HCPCS: 56405; 87070; 87205; 99283; 99284; A9270

== ENCOUNTER 2021-07-07 08:00 | Outpatient (CLI) | payer MEDICARE, OTHER ==
[2021-07-07 13:05] LABS: BILIRUBIN,URINE NEGATIVE (NEGATIVE); GLUCOSE, URINE (UA) NEGATIVE (NEGATIVE); KETONES,URINE (UA) NEGATIVE (NEGATIVE); LEUKOCYTE ESTERASE, URINE NEGATIVE (NEGATIVE); NITRITE,URINE NEGATIVE (NEGATIVE); OCCULT BLOOD,URINE NEGATIVE (NEGATIVE); PH,URINE 5.5 PH (5.0-7.5); PROTEIN,URINE NEGATIVE (NEGATIVE); UROBILINOGEN,URINE 0.2 (NORMAL) E.U./dL (NORMAL)
[2021-07-07 13:12] LABS: CLARITY,URINE CLOUDY (CLEAR)
[2021-07-07 13:19] LABS: RBC,URINE None Seen /HPF (0-5); SQUAMOUS EPITHELIAL CELL,UR NONE SEEN (<= Few); WBC,URINE 0-3 /HPF (0-5)
[2021-07-07 13:20] LABS: AMORPHOUS SEDIMENT,UR Rare /LPF; BACTERIA,URINE None Seen /HPF (None Seen)
== END 2021-07-07 23:59 | disposition home or self-care (01) ==
LOC: LAB.WCP 08:00
PROVIDERS: ATTEND Family Medicine
DX: R32 Unspecified urinary incontinence (principal)
CPT/HCPCS: 81001; 87086

== ENCOUNTER 2021-08-27 03:20 | Outpatient (CLI) | payer MEDICARE, OTHER | END 2021-08-27 03:21 | disposition critical access hospital (66) | LOC: EMS 03:20 | DX: R10.31 Right lower quadrant pain (principal) | CPT/HCPCS: A0425; A0429 ==

== ENCOUNTER 2021-08-27 03:38 | Emergency (ER) | payer MEDICARE, OTHER ==
--- NOTE | 2021-08-27 04:04 | ED Physician Documentation ---
PD HPI ABD PAIN - Stated complaint Stated Complaint: RT FLANK PAIN - Chief complaint Chief Complaint: Abd Pain - History obtained from History obtained from: Patient, EMS - History of Present Illness Timing - onset: Yesterday Timing - details: Abrupt onset, Intermittant, Waxing and waning Pain level now: 8 Location: RUQ Radiation: Right flank Improved by: Other (no ameliorating factors) Worsened by: Other (no exacerbating factors) Associated symptoms: Nausea, Vomiting. No: Fever, Diarrhea, Constipation, Dysuria, Hematuria, Chest pain Similar symptoms before: Has not had sx before Recently seen: Not recently seen - Additional information Additional information: BIBA, c/o sudden onset RUQ pain that radiates around right flank to right paralumbar region. Pain started yesterday and has been episodic since onset. She says she has not had this pain before. Review of Systems Constitutional: denies: Fever, Chills, Sweats Cardiac: reports: Reviewed and negative Respiratory: reports: Reviewed and negative GI: reports: Abdominal Pain, Nausea, Vomiting. denies: Abdominal Swelling, Constipation, Diarrhea, Hematemesis, Bloody / black stool : denies: Dysuria, Hematuria Skin: reports: Reviewed and negative Musculoskeletal: reports: Reviewed and negative Neurologic: reports: Reviewed and negative PD PAST MEDICAL HISTORY - Past Medical History Past Medical History: Yes Cardiovascular: High cholesterol, Murmur, Arrhythmia Respiratory: Asthma Neuro: None Endocrine/Autoimmune: None GI: GERD, Chronic diarrhea, Chronic constipation, Other : Incontinence, Nocturia HEENT: Other Psych: Depression, ADD/ADHD Musculoskeletal: Fatigue - Past Surgical History Past Surgical History: 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 HEENT: Tonsil/Adenoidectomy - Present Medications Home Medications: Ambulatory Orders Medication Instructions Recorded Confirmed Aspirin/Acetaminophen/Caffeine 1 cap PO DAILY PRN 07/11/13 10/17/20 [Excedrin Migraine Geltab] Atorvastatin Calcium [Lipitor] 20 mg PO QPM 07/11/13 10/17/20 Clopidogrel [Plavix] 75 mg PO DAILY 07/11/13 10/17/20 DULoxetine [Cymbalta] 30 mg PO QPM 07/11/13 10/17/20 Pantoprazole Sodium 40 mg PO BID 07/11/13 10/17/20 Riboflavin (Vitamin B2) [Vitamin 4 tab PO DAILY 07/11/13 10/17/20 B-2] Sucralfate 1 gm PO QID PRN 07/11/13 10/17/20 Albuterol Sulfate [Albuterol 2 puffs IH Q4HR PRN 03/14/20 10/17/20 Sulfate Hfa] Ascorbic Acid [Vitamin C] 1 tab PO DAILY 03/14/20 10/17/20 Calcium Carbonate [Calcium] 1 tab PO BID 03/14/20 10/17/20 Cholecalciferol (Vitamin D3) 1 tab PO DAILY 03/14/20 10/17/20 [Vitamin D3] Diltiazem HCl [Diltiazem 24Hr ER] 180 mg PO DAILY 03/14/20 10/17/20 Furosemide 20 mg PO DAILY 03/14/20 10/17/20 Gabapentin 200 mg PO TID 03/14/20 10/17/20 Loperamide HCl [Imodium A-D] 2 mg PO TID 03/14/20 10/17/20 Multivitamin [Multivitamins] 1 cap PO DAILY 03/14/20 10/17/20 [place]-3/Dha/Epa/Fish Oil [Fish Oil 1 cap PO QID 03/14/20 10/17/20 [place]-3 EC 1,200 mg] Tadalafil [Alyq] 20 mg PO BID 03/14/20 10/17/20 Acetaminophen [Acetaminophen Extra 500 mg PO PRN 10/17/20 Strength] Budesonide [Pulmicort] 1 inh INH BID 10/17/20 10/17/20 Cyanocobalamin [Vitamin B-12] 1 ml INJ 10/17/20 Mirtazapine [Remeron] 15 mg PO QPM 10/17/20 10/18/20 Triamcinolone 0.1% Cream [Kenalog 10/17/20 0.1% Cream] Benzonatate [Tessalon] 100 mg PO TID PRN #21 cap 10/19/20 Metoprolol Tartrate [Lopressor] 50 mg PO ONCE 08/27/21 08/27/21 - Allergies Allergies/Adverse Reactions: Allergies Allergy/AdvReac Type Severity Reaction Status Date / Time nitrofurantoin Allergy Unknown Rash Verified 10/17/20 18:23 [From Macrobid] nitrofurantoin Allergy Unknown Rash Verified 10/17/20 18:23 macrocrystalline * [From Macrobid] clarithromycin [From Biaxin] AdvReac Severe Emesis Verified 10/17/20 18:23 amitriptyline AdvReac Hallucinati Verified 08/27/21 03:49 ons - Social History Does the pt smoke?: Yes Smoking Status: Current every day smoker Does the pt drink ETOH?: No Does the pt have substance abuse?: No - Immunizations Immunizations are current?: Yes - POLST Patient has POLST: No PD ED PE NORMAL - Vitals Vital signs reviewed: Yes - General General: Alert and oriented X 3, Well developed/nourished, Other (obvious painful distress with emesis x 1 during HPI) - Neck Neck: Supple, no meningeal sign - Cardiac Cardiac: RRR, No murmur - Respiratory Respiratory: No respiratory distress, Clear bilaterally - Abdomen Abdomen: Soft, Non tender, Non distended - Back Back: No CVA TTP - Derm Derm: Normal color, Warm and dry, No rash Results - Vitals Vitals: Vital Signs - 24 hr 08/27/21 08/27/21 08/27/21 03:44 04:01 04:02 Temperature 36.4 C L Heart Rate 88 Respiratory 18 Rate Blood Pressure 136/52 H O2 Saturation 96 91 L 98 08/27/21 08/27/21 08/27/21 06:00 08:00 10:00 Temperature Heart Rate 86 79 84 Respiratory 16 19 16 Rate Blood Pressure 129/54 L 128/60 141/72 H O2 Saturation 93 94 97 Oxygen O2 Source Room air Oxygen Flow Rate 2 - Labs Labs: Laboratory Tests 08/27/21 08/27/21 04:15 04:15 WBC 11.6 H RBC 3.99 L Hgb 12.0 Hct 36.5 L MCV 91.5 MCH 30.1 MCHC 32.9 RDW 15.7 H Plt Count 182 MPV 9.2 Neut # (Auto) 9.6 H Lymph # (Auto) 1.0 L Wake # (Auto) 0.9 Eos # (Auto) 0.0 Baso # (Auto) 0.0 Absolute Nucleated RBC 0.00 Nucleated RBC % 0.0 Sodium 136 Potassium 3.7 Chloride 98 L Carbon Dioxide 25 Anion Gap 13.0 BUN 23 H Creatinine 0.8 Estimated GFR (MDRD) 70 L Glucose 125 H Calcium 9.1 Total Bilirubin 1.3 H AST 114 H ALT 47 Alkaline Phosphatase 189 H Total Protein 6.7 Albumin 3.6 Globulin 3.1 Albumin/Globulin Ratio 1.2 Lipase 212 H - Rads (name of study) CT A/P Radiology: Prelim report reviewed, See rad report PD MEDICAL DECISION MAKING - ED course Complexity details: reviewed results, re-evaluated patient, considered differential, d/w patient ED course: presents with RUQ, right flank pain , waxing and waning since yesterday. Blood tests show mildly elevated bilirubin, alkaline phosphatase, AST. Minimal leukocytosis noted. Patient had slight and transient improvement in pain with IV dilaudid 0.5 mg, but subsequently required redosing (1 mg on next dose). She had relief of nausea with IV zofran. CT A/P without contrast performed, suspected renal or biliary colic. There is no evidence of obstructive uropathy but other findings include prominent gallbladder with gallstones and biliary ductal dilatation. A RUQ US is then ordered and results are pending at end of my shift, care of patient turned over to Dr. Lee.
[2021-08-27] MEDS ORDERED: SODIUM CHLORIDE 0.9% 500 ML IV STA (04:06)
[2021-08-27] MEDS ORDERED: ONDANSETRON 4 MG/2 ML VIAL IVP STA (04:06)
[2021-08-27] MEDS ORDERED: HYDROmorphone 1 MG/ML CARPUJECT IVP STA ×3 (04:06→16:14)
[2021-08-27 04:28] LABS: BASOPHILS % (AUTO) 0.3 %; EOSINOPHILS % (AUTO) 0.2 %; HCT - HEMATOCRIT 36.5 % (37.0-47.0); LYMPHOCYTES % (AUTO) 8.5 %; MEAN CORPUSCULAR HEMOGLOBIN 30.1 pg (27.0-31.0); MEAN CORPUSCULAR HGB CONC 32.9 g/dL (32.0-36.0); MEAN CORPUSCULAR VOLUME 91.5 fL (81.0-99.0); MEAN PLATELET VOLUME 9.2 fL (7.9-10.8); MONOCYTES # (AUTO) 0.9 10^3/uL (0.0-1.0); MONOCYTES % (AUTO) 7.7 %; NEUTROPHILS # (AUTO) 9.6 10^3/uL (1.5-6.6); NEUTROPHILS % (AUTO) 82.8 %; PLT - PLATELET COUNT 182 10^3/uL (130-450); RED BLOOD COUNT 3.99 10^6/uL (4.20-5.40); RED CELL DISTRIBUTION WIDTH 15.7 % (12.0-15.0); WHITE BLOOD COUNT 11.6 x10^3/uL (4.8-10.8)
[2021-08-27 04:47] LABS: ALBUMIN 3.6 g/dL (3.2-5.5); ALBUMIN/GLOBULIN RATIO 1.2 (1.0-2.2); BILIRUBIN,TOTAL 1.3 mg/dL (0.2-1.0); CALCIUM 9.1 mg/dL (8.5-10.3); CREATININE 0.8 mg/dL (0.4-1.0); POTASSIUM 3.7 mmol/L (3.5-5.0); TOTAL PROTEIN 6.7 g/dL (6.7-8.2)
--- NOTE | 2021-08-27 09:33 | CT Report ---
PROCEDURE: Abdomen/Pelvis WO INDICATIONS: right flank pain TECHNIQUE: Noncontrast 5 mm thick sections acquired from the diaphragms to the symphysis. 5 mm coronal and sagi ttal reformats were then performed. For radiation dose reduction, the following was used: automated exposure control, adjustment of mA and/or kV according to patient size. COMPARISON: 04/06/2018. Correlation is also made with chest CT, 05/30/2018. FINDINGS: Image quality: Excellent. ABDOMEN: Lung bases: At the lung bases, patchy nodular areas are seen, some which demonstrate calcified center s. These are overall relatively similar to the th 2018 CT examination. Perihilar calcified lymph n odes are partially seen. Heart size is normal. Solid organs: Liver and spleen are normal in size. Gallbladder demonstrates layering gallstones. The gallbladder itself is prominent in size. There is m ild intrahepatic biliary ductal dilatation. The common bile duct measures approximately 11 mm. Pancreas is normal in contours. The pancreas overall appears atrophic and the pancreatic duct measure s 4 to 5 mm. No adrenal nodules. Kidneys are normal in size, without hydronephrosis or nephrolithias is. Peritoneum and bowel: Dense foci can be seen within the region surrounding the gastroesophageal junct ion. Duodenal diverticula are again seen. Unenhanced bowel loops demonstrate normal wall thickness an d caliber. No free fluid or air. Minimal sigmoid diverticulosis is seen, without findings of active diverticulitis. A moderate amount of stool is seen within the colon. Nodes and vessels: No retroperitoneal or mesenteric adenopathy by size criteria. Aorta and inferior vena cava are normal in caliber. Miscellaneous: No ventral hernias. PELVIS: Genitourinary: Bladder wall thickness is normal. This patient is status post hysterectomy. No adnex al masses can be seen. Miscellaneous: No inguinal hernias or adenopathy. Bones: No suspicious bony lesions. No vertebral body compression fractures. Age-appropriate degene rative changes are seen. IMPRESSION: In this patient with right flank pain, no kidney stones or hydronephrosis can be seen on either side. Prominent gallbladder with gallstones seen within it. No additional CT findings of cholecystitis are seen. If there is strong clinical concern for cholecystitis, please consider a dedicated right upper quadrant ultrasound for further evaluation. Intrahepatic and extrahepatic biliary ductal dilatation is seen, with pancreatic ductal dilatation al so seen. If clinically appropriate, please consider a dedicated MRCP for further evaluation (assuming that there is no contraindication). At the lung bases, there are nodular opacities seen, several which demonstrate calcified center. Thes e are similar to 2018 and there is suspicion for granulomatous disease. Perihilar calcified lymph nod es are also seen. If there is strong clinical concern for metastatic disease in this patient, please consider a follow-up dedicated chest CT for further evaluation. Additional foci of density can be seen surrounding the gastroesophageal junction. Differential diagno sis includes benign calcification versus prior Ruthy fundoplication. There is a moderate amount of stool seen within the colon. Please correlate with clinical constipatio n. Incidental note is made of: Duodenal diverticula Hysterectomy Minimal sigmoid diverticulosis, without active diverticulitis Note: No significant discrepancy from the preliminary report. Reviewed by: Shahbaz Porter MD on 08/27/2021 8:32 AM [place] Approved by: Shahbaz Porter MD on 08/27/2021 8:32 AM [facility] Station ID: [id number]
--- NOTE | 2021-08-27 10:55 | Ultrasound Report ---
PROCEDURE: Abdomen Limited INDICATIONS: RUQ pain TECHNIQUE: Real-time focused scanning was performed of the abdomen, with image documentation. COMPARISON: Correlation is made with the accompanying abdomen pelvis CT, 08/27/2021. FINDINGS: The gallbladder is distended, measuring 11.2 x 4.9 cm. Within the gallbladder, tiny mobile stones can be seen. The gallbladder wall does not appear thickened. There is no specific pericholecy stic fluid. The sonographic Malagon's sign is negative. The liver demonstrates normal size and demonstrates a coarsened echotexture. Mild intrahepatic biliar y ductal dilatation is seen. The common bile duct is dilated to 14 mm. The pancreas is overall echogenic. The pancreatic duct is dilated to 7 mm. The right kidney is unremarkable. The IVC is patent. IMPRESSION: A distended gallbladder is seen, with gallstones. No additional sonographic signs of cholecystitis ar e seen. The common bile duct and of the pancreatic duct are dilated, as previously demonstrated. Mild intrahe patic biliary ductal dilatation is seen. If clinically appropriate, please consider a dedicated MRCP for further evaluation (assuming that there is no contraindication). Note: Concordant preliminary findings given by the desk clerks supervisor upon the completion of the examination to Dr. Lee at 10:40 AM on 08/27/2021. Reviewed by: Shahbaz Porter MD on 08/27/2021 9:53 AM [facility] Approved by: Shahbaz Porter MD on 08/27/2021 9:53 AM [facility] Station ID: [id number]
[2021-08-27] MEDS ORDERED: HYDROmorphone 0.5 MG/0.5 ML SYRINGE IVP STA (11:00)
[2021-08-27] MEDS ORDERED: SODIUM CHLORIDE 0.9% 1,000 ML IV STA (11:00)
[2021-08-27] MEDS ORDERED: KETOROLAC 15 MG/ML VIAL IVP STA (11:01)
--- NOTE | 2021-08-27 13:13 | CONSULTATION NOTE ---
Referring Provider Consult Date: 08/27/21 Chief Complaint - Chief Complaint Chief Complaint: right upper quadrant pain going to right upper back for few days History of Present Illness - History Obtained From Records Reviewed: yes History obtained from: pt Exam Limitations: none - History of Present Illness HPI Comment/Other: Few days of right upper quadrant pain. Seen and evaluated in the ED. Recent ct scan and ultrasound small gallstones and distended gallbladder without inflammation. LFTs mildly elevated. She gets her care at located within [facility]. She has sarcoidosis, enlarged right heart, and severe pulmonary hypertension. 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: reports: Hysterectomy HEENT: reports: Tonsil/Adenoidectomy - POLST Patient has POLST: No Meds/Allgy - Home Medications Home Medications: Ambulatory Orders Medication Instructions Recorded Confirmed Aspirin/Acetaminophen/Caffeine 1 cap PO DAILY PRN 07/11/13 10/17/20 [Excedrin Migraine Geltab] Atorvastatin Calcium [Lipitor] 20 mg PO QPM 07/11/13 10/17/20 Clopidogrel [Plavix] 75 mg PO DAILY 07/11/13 10/17/20 DULoxetine [Cymbalta] 30 mg PO QPM 07/11/13 10/17/20 Pantoprazole Sodium 40 mg PO BID 07/11/13 10/17/20 Riboflavin (Vitamin B2) [Vitamin 4 tab PO DAILY 07/11/13 10/17/20 B-2] Sucralfate 1 gm PO QID PRN 07/11/13 10/17/20 Albuterol Sulfate [Albuterol 2 puffs IH Q4HR PRN 03/14/20 10/17/20 Sulfate Hfa] Ascorbic Acid [Vitamin C] 1 tab PO DAILY 03/14/20 10/17/20 Calcium Carbonate [Calcium] 1 tab PO BID 03/14/20 10/17/20 Cholecalciferol (Vitamin D3) 1 tab PO DAILY 03/14/20 10/17/20 [Vitamin D3] Diltiazem HCl [Diltiazem 24Hr ER] 180 mg PO DAILY 03/14/20 10/17/20 Furosemide 20 mg PO DAILY 03/14/20 10/17/20 Gabapentin 200 mg PO TID 03/14/20 10/17/20 Loperamide HCl [Imodium A-D] 2 mg PO TID 03/14/20 10/17/20 Multivitamin [Multivitamins] 1 cap PO DAILY 03/14/20 10/17/20 [place]-3/Dha/Epa/Fish Oil [Fish Oil 1 cap PO QID 03/14/20 10/17/20 [place]-3 EC 1,200 mg] Tadalafil [Alyq] 20 mg PO BID 03/14/20 10/17/20 Acetaminophen [Acetaminophen Extra 500 mg PO PRN 10/17/20 Strength] Budesonide [Pulmicort] 1 inh INH BID 10/17/20 10/17/20 Cyanocobalamin [Vitamin B-12] 1 ml INJ 10/17/20 Mirtazapine [Remeron] 15 mg PO QPM 10/17/20 10/18/20 Triamcinolone 0.1% Cream [Kenalog 10/17/20 0.1% Cream] Benzonatate [Tessalon] 100 mg PO TID PRN #21 cap 10/19/20 Metoprolol Tartrate [Lopressor] 50 mg PO ONCE 08/27/21 08/27/21 - Allergies Allergies/Adverse Reactions: Allergies Allergy/AdvReac Type Severity Reaction Status Date / Time nitrofurantoin Allergy Unknown Rash Verified 10/17/20 18:23 [From Macrobid] nitrofurantoin Allergy Unknown Rash Verified 10/17/20 18:23 macrocrystalline * [From Macrobid] clarithromycin [From Biaxin] AdvReac Severe Emesis Verified 10/17/20 18:23 amitriptyline AdvReac Hallucinati Verified 08/27/21 03:49 ons Review of Systems - Other Findings Other Findings: 10 pt ros as above otherwise unremarkable Exam - Vital Signs Reviewed Vital Signs: Yes Vital Signs: Vital Signs x48h Pulse Resp BP Pulse Ox 08/27/21 12:00 81 16 139/69 H 95 08/27/21 10:00 84 16 141/72 H 97 08/27/21 08:00 79 19 128/60 94 01/22/22 06:00 86 16 129/54 L 93 - Physical Exam General Appearance: positive: No acute distress, Alert Eyes Bilateral: positive: PERRL, EOMI, No scleral icterus ENT: positive: No signs of dehydration Neck: positive: No JVD Respiratory: positive: No respiratory distress, Other (tacyhpnic with conversation) Cardiovascular: positive: Regular rate & rhythm Abdomen: positive: No distention, Other (benign abdomen iwth minimal ruq tenderness) Neurologic/Psychiatric: positive: Oriented x3 Conclusion/Plan - Problem List (1) Gallstones Conclusion/Plan: she has pain consistent with gallbladder pain. She may be passing a gallstone. Her gallstones are very small and certainly should pass. She has a distended gallbladder without inflammation Gallbladder surgery is unlikely to become an emergency She is not a candidate for surgery at [facility] given her enlarged right heart, poor pulmonary function, and severe pulmonary hypertension. - Lab Results Fish Bones: 08/27/21 04:15 08/27/21 04:15
[2021-08-27 15:50] LABS: BASOPHILS % (AUTO) 0.3 %; EOSINOPHILS # (AUTO) 0.1 10^3/uL (0.0-0.7); EOSINOPHILS % (AUTO) 0.8 %; HCT - HEMATOCRIT 33.9 % (37.0-47.0); LYMPHOCYTES # (AUTO) 0.8 10^3/uL (1.5-3.5); LYMPHOCYTES % (AUTO) 8.9 %; MEAN CORPUSCULAR HEMOGLOBIN 30.2 pg (27.0-31.0); MEAN CORPUSCULAR HGB CONC 32.4 g/dL (32.0-36.0); MEAN CORPUSCULAR VOLUME 93.1 fL (81.0-99.0); MEAN PLATELET VOLUME 9.3 fL (7.9-10.8); MONOCYTES # (AUTO) 0.7 10^3/uL (0.0-1.0); MONOCYTES % (AUTO) 7.8 %; NEUTROPHILS # (AUTO) 7.5 10^3/uL (1.5-6.6); NEUTROPHILS % (AUTO) 81.8 %; PLT - PLATELET COUNT 153 10^3/uL (130-450); RED BLOOD COUNT 3.64 10^6/uL (4.20-5.40); RED CELL DISTRIBUTION WIDTH 15.8 % (12.0-15.0); WHITE BLOOD COUNT 9.1 x10^3/uL (4.8-10.8)
[2021-08-27 16:04] LABS: ALBUMIN 3.1 g/dL (3.2-5.5); ALBUMIN/GLOBULIN RATIO 1.2 (1.0-2.2); BILIRUBIN,TOTAL 1.6 mg/dL (0.2-1.0); CALCIUM 8.3 mg/dL (8.5-10.3); CREATININE 0.8 mg/dL (0.4-1.0); POTASSIUM 3.9 mmol/L (3.5-5.0); TOTAL PROTEIN 5.7 g/dL (6.7-8.2)
--- NOTE | 2021-08-27 16:20 | ED Physician Documentation ---
ED Addendum - Addendum Addendum: 08/27/21 16:15I assumed care after change of shift. The patient continues to have ongoing abdominal pain that is improved with pain medicine but exacerbates as medicine is wearing off. She is needing repeat doses of IV pain medicine every 1-2 hours. She has not had any vomiting. No fevers. No beds available at other hospitals, and in particular not at [facility], which would be the patient's preference, given Cheese Blender and Shoe Turner are there. I did consult Dr. Aceves on-call for surgery. He came and talked with the patient and evaluated labs/imaging. He states the patient is not a surgical candidate for this facility which seemed reasonable already, given her past history and current history of sarcoidosis and heart murmur and such. The question to Dr. Aceves was: could the patient be admitted here for pain control and see if she has improvement in symptoms and further evaluation. However since there is possibility of progressing to needing surgery or ERCP, Dr. Aceves did not feel admission here was appropriate. At this point the consideration would be whether the patient had a ductal stone that passed versus persistent ductal obstruction. This would bear out with repeated tests for LFTs and blood count as well as symptom progression. He suggested repeating blood tests early afternoon and again later or tomorrow morning. If still here on Sunday, I suppose MRCP would be a more definitive test for this, though would not preclude that patient would still not be surgical candidate for here, and would prefer [facility], where her specialists are.
[2021-08-27] MEDS ORDERED: ALBUTEROL NEB 2.5 MG/3 ML INH STA (17:26)
[2021-08-27] MEDS ORDERED: BUDESONIDE 0.5 MG/2 ML NEB INH STA (17:27)
[2021-08-27] MEDS ORDERED: LACTATED RINGERS 1,000 ML IV STA (17:41)
[2021-08-27] MEDS ORDERED: PIPERACILLIN/TAZOBACTAM 3.375 GM in SODIUM CHLORIDE 0.9% MINIBAG 100 ML IV STA (19:07)
[2021-08-27] MEDS: BUDESONIDE 0.5 MG/2 ML NEB INH SCH (20:16)
[2021-08-27] MEDS: ALBUTEROL NEB 2.5 MG/3 ML INH SCH (20:16)
[2021-08-27 21:01] LABS: GLUCOSE, URINE (UA) NEGATIVE (NEGATIVE); KETONES,URINE (UA) NEGATIVE (NEGATIVE); LEUKOCYTE ESTERASE, URINE NEGATIVE (NEGATIVE); NITRITE,URINE NEGATIVE (NEGATIVE); OCCULT BLOOD,URINE NEGATIVE (NEGATIVE); PH,URINE 5.5 PH (5.0-7.5); PROTEIN,URINE NEGATIVE (NEGATIVE); UROBILINOGEN,URINE 1 (NORMAL) E.U./dL (NORMAL)
[2021-08-27 21:13] LABS: BILIRUBIN,URINE NEGATIVE (NEGATIVE); CLARITY,URINE CLEAR (CLEAR); ICTOTEST,URINE NEGATIVE
[2021-08-27] MEDS: HYDROmorphone 1 MG/ML CARPUJECT IVP PRN (22:12)
[2021-08-28 00:42] LABS: BASOPHILS % (AUTO) 0.3 %; EOSINOPHILS # (AUTO) 0.1 10^3/uL (0.0-0.7); EOSINOPHILS % (AUTO) 0.5 %; HCT - HEMATOCRIT 36.3 % (37.0-47.0); HGB - HEMOGLOBIN 11.6 g/dL (12.0-16.0); LYMPHOCYTES # (AUTO) 0.6 10^3/uL (1.5-3.5); LYMPHOCYTES % (AUTO) 5.8 %; MEAN CORPUSCULAR HEMOGLOBIN 30.5 pg (27.0-31.0); MEAN CORPUSCULAR VOLUME 95.5 fL (81.0-99.0); MEAN PLATELET VOLUME 9.5 fL (7.9-10.8); MONOCYTES # (AUTO) 0.7 10^3/uL (0.0-1.0); MONOCYTES % (AUTO) 6.6 %; NEUTROPHILS % (AUTO) 86.3 %; PLT - PLATELET COUNT 169 10^3/uL (130-450); RED CELL DISTRIBUTION WIDTH 15.8 % (12.0-15.0); WHITE BLOOD COUNT 10.5 x10^3/uL (4.8-10.8)
[2021-08-28 00:52] LABS: ALBUMIN 3.2 g/dL (3.2-5.5); ALBUMIN/GLOBULIN RATIO 1.1 (1.0-2.2); BILIRUBIN,TOTAL 1.7 mg/dL (0.2-1.0); CALCIUM 8.2 mg/dL (8.5-10.3); CREATININE 0.8 mg/dL (0.4-1.0); POTASSIUM 3.9 mmol/L (3.5-5.0)
[2021-08-28 01:52] LABS: B. PARAPERTUSSIS- RESP PCR PAN NOT DETECTED; B. PERTUSSIS- RESP PCR PANEL NOT DETECTED; C. PNEUMONIAE- RESP PCR PANEL NOT DETECTED; CORONAVIRUS 229E-RESP PCR NOT DETECTED; CORONAVIRUS HKU1-RESP PCR NOT DETECTED; CORONAVIRUS NL63-RESP PCR NOT DETECTED; CORONAVIRUS OC43-RESP PCR NOT DETECTED; HUMAN METAPNEUMOVIRUS NOT DETECTED; INFLUENZA A- RESP PCR PANEL NOT DETECTED; INFLUENZA B - RESP PCR PANEL NOT DETECTED; M. PNEUMONIAE- RESP PCR PANEL NOT DETECTED; PARAINFLUENZA VIRUS 1 NOT DETECTED; PARAINFLUENZA VIRUS 2 NOT DETECTED; PARAINFLUENZA VIRUS 3 NOT DETECTED; PARAINFLUENZA VIRUS 4 NOT DETECTED; RHINOVIRUS/ENTEROVIRUS NOT DETECTED; RSV- RESP PCR PANEL NOT DETECTED; SARS-CoV-2 -RESP PCR PANEL NOT DETECTED
[2021-08-28] MEDS: HYDROmorphone 1 MG/ML CARPUJECT IVP PRN ×3 (04:08→15:47)
[2021-08-28 06:21] LABS: BASOPHILS % (AUTO) 0.2 %; EOSINOPHILS # (AUTO) 0.1 10^3/uL (0.0-0.7); EOSINOPHILS % (AUTO) 0.4 %; HCT - HEMATOCRIT 35.1 % (37.0-47.0); HGB - HEMOGLOBIN 11.2 g/dL (12.0-16.0); LYMPHOCYTES # (AUTO) 0.8 10^3/uL (1.5-3.5); LYMPHOCYTES % (AUTO) 6.3 %; MEAN CORPUSCULAR HGB CONC 31.9 g/dL (32.0-36.0); MEAN CORPUSCULAR VOLUME 94.1 fL (81.0-99.0); MEAN PLATELET VOLUME 9.7 fL (7.9-10.8); MONOCYTES # (AUTO) 0.7 10^3/uL (0.0-1.0); NEUTROPHILS # (AUTO) 10.7 10^3/uL (1.5-6.6); NEUTROPHILS % (AUTO) 86.5 %; PLT - PLATELET COUNT 175 10^3/uL (130-450); RED BLOOD COUNT 3.73 10^6/uL (4.20-5.40); RED CELL DISTRIBUTION WIDTH 15.8 % (12.0-15.0); WHITE BLOOD COUNT 12.3 x10^3/uL (4.8-10.8)
[2021-08-28 06:36] LABS: ALBUMIN 3.1 g/dL (3.2-5.5); CALCIUM 8.2 mg/dL (8.5-10.3); CREATININE 0.6 mg/dL (0.4-1.0); POTASSIUM 3.9 mmol/L (3.5-5.0); TOTAL PROTEIN 6.1 g/dL (6.7-8.2)
[2021-08-28] MEDS: ALBUTEROL NEB 2.5 MG/3 ML INH SCH ×2 (07:02→16:58)
[2021-08-28] MEDS: BUDESONIDE 0.5 MG/2 ML NEB INH SCH ×2 (07:03→16:58)
[2021-08-28] MEDS ORDERED: PIPERACILLIN/TAZOBACTAM 3.375 GM in SODIUM CHLORIDE 0.9% MINIBAG 100 ML IV STA (07:12)
--- NOTE | 2021-08-28 08:12 | XRAY Report ---
PROCEDURE: Chest 1 View X-Ray INDICATIONS: chest pain TECHNIQUE: One view of the chest was acquired. COMPARISON: 10/17/2020, 03/17/2015. Correlation is also made with chest CT, 05/30/2019 FINDINGS: Surgical changes and devices: Epigastric clips are seen. Lungs and pleura: No pleural effusions or pneumothorax. Bilateral patchy interstitial type infiltrat es are seen. Low lung volumes can be seen, causing a crowded appearance to the lung markings. Mediastinum: Mediastinal contours appear normal. Heart size is normal. Bones and chest wall: No suspicious bony lesions. Age-appropriate degenerative changes are seen. Overlying soft tissues appear unremarkable. IMPRESSION: Patchy bilateral interstitial infiltrates are seen. Please consider pulmonary edema versus atypical i nfiltrate (including COVID pneumonia). In this patient with a known history of sarcoidosis, worsening pulmonary involvement with sarcoidosis is also possible, yet considered to be less likely, given the change from the prior plain film study . Note: No significant discrepancy from the preliminary report. Reviewed by: Shahbaz Porter MD on 08/28/2021 7:11 AM [facility] Approved by: Shahbaz Porter MD on 08/28/2021 7:11 AM [facility] Station ID: [id number]
[2021-08-28] MEDS ORDERED: METOPROLOL TARTRATE 50 MG TABLET PO STA (10:55)
[2021-08-28] MEDS ORDERED: FUROSEMIDE 20 MG/2 ML VIAL IVP STA (10:55)
[2021-08-28] MEDS ORDERED: ONDANSETRON 4 MG/2 ML VIAL IVP STA (23:18)
[2021-08-28] MEDS ORDERED: ALBUTEROL NEB 2.5 MG/3 ML INH STA (23:21)
--- NOTE | 2021-08-28 23:26 | ED Physician Documentation ---
ED Addendum - Addendum Addendum: 08/28/21 23:26 Patient having quite a bit of cough productive of purulent sputum this evening and now is running a fever. Looking back, she has not been running a fever before now. Unclear if the new fevers from a pulmonary source or from worsening of her biliary issue. Repeat labs, cultures, lactate, and new chest x-ray were ordered. She is already on scheduled Zosyn. She is very modestly hypoxemic in the high 80s on a nasal cannula. 08/29/21 00:12 Single view repeat chest x-ray interpreted contemporaneously by me demonstrates no significant change from prior x-ray from approximately 14 hours prior. Looking at the labs, although her white count is better, her metabolic panel shows worsening bilirubin trending up now to 5.3 and alkaline phosphatase at 298. This combined with the fever is concerning that she is developing worsening signs of ascending cholangitis. Although the plan was to send her to [facility] where her specialists are, they have been reliably full and as such I asked the FURNITURE [employer]UC[employer] to reach out to the [facility] as we probably need to entertain a more urgent transfer to somewhere capable of IR and/or ERCP. Of note, it also seems that her oxygen requirement has generally been going up and is currently on 6 L oxygen mask. This gives her sat in the low 90s. 08/29/21 05:25 Case was presented to , hospitalist at [facility] and she accepts in transfer.
[2021-08-28] MEDS ORDERED: ALBUTEROL NEB 2.5 MG/3 ML INH PRN (23:30)
[2021-08-28] MEDS ORDERED: ACETAMINOPHEN 325 MG TABLET PO PRN (23:31)
[2021-08-29 00:06] LABS: BASOPHILS % (AUTO) 0.2 %; EOSINOPHILS # (AUTO) 0.1 10^3/uL (0.0-0.7); EOSINOPHILS % (AUTO) 0.8 %; HCT - HEMATOCRIT 37.2 % (37.0-47.0); HGB - HEMOGLOBIN 12.2 g/dL (12.0-16.0); LYMPHOCYTES # (AUTO) 1.1 10^3/uL (1.5-3.5); LYMPHOCYTES % (AUTO) 12.4 %; MEAN CORPUSCULAR HGB CONC 32.8 g/dL (32.0-36.0); MEAN CORPUSCULAR VOLUME 91.4 fL (81.0-99.0); MEAN PLATELET VOLUME 9.2 fL (7.9-10.8); MONOCYTES # (AUTO) 0.6 10^3/uL (0.0-1.0); MONOCYTES % (AUTO) 7.2 %; NEUTROPHILS # (AUTO) 6.9 10^3/uL (1.5-6.6); NEUTROPHILS % (AUTO) 79.1 %; PLT - PLATELET COUNT 193 10^3/uL (130-450); RED BLOOD COUNT 4.07 10^6/uL (4.20-5.40); RED CELL DISTRIBUTION WIDTH 15.3 % (12.0-15.0); WHITE BLOOD COUNT 8.7 x10^3/uL (4.8-10.8)
--- NOTE | 2021-08-29 00:08 | XRAY Report ---
PROCEDURE: Chest 1 View X-Ray INDICATIONS: Cough, dyspnea TECHNIQUE: One view of the chest was acquired. COMPARISON: 08/28/2021 chest radiograph FINDINGS: Surgical changes and devices: None. Lungs and pleura: No pleural effusions or pneumothorax. Similar to increased interstitial and airspa ce opacities in both lungs. Mediastinum: Mediastinal contours appear normal. Heart size is normal. Bones and chest wall: No suspicious bony lesions. Overlying soft tissues appear unremarkable. IMPRESSION: No significant change in appearance of the chest Reviewed by: Hipolito Ware MD on 08/29/2021 12:07 AM PST Approved by: Hipolito Ware MD on 08/29/2021 12:07 AM PST Station ID: [id number]
[2021-08-29 00:17] LABS: ALBUMIN 3.1 g/dL (3.2-5.5); BILIRUBIN,TOTAL 5.3 mg/dL (0.2-1.0); CALCIUM 8.5 mg/dL (8.5-10.3); CREATININE 0.5 mg/dL (0.4-1.0); POTASSIUM 3.2 mmol/L (3.5-5.0); TOTAL PROTEIN 6.2 g/dL (6.7-8.2)
[2021-08-29 06:13] LABS: BASOPHILS % (AUTO) 0.4 %; EOSINOPHILS # (AUTO) 0.1 10^3/uL (0.0-0.7); EOSINOPHILS % (AUTO) 1.4 %; HCT - HEMATOCRIT 36.8 % (37.0-47.0); HGB - HEMOGLOBIN 12.2 g/dL (12.0-16.0); LYMPHOCYTES # (AUTO) 0.6 10^3/uL (1.5-3.5); LYMPHOCYTES % (AUTO) 8.2 %; MEAN CORPUSCULAR HEMOGLOBIN 30.9 pg (27.0-31.0); MEAN CORPUSCULAR HGB CONC 33.2 g/dL (32.0-36.0); MEAN CORPUSCULAR VOLUME 93.2 fL (81.0-99.0); MEAN PLATELET VOLUME 9.3 fL (7.9-10.8); MONOCYTES # (AUTO) 0.7 10^3/uL (0.0-1.0); MONOCYTES % (AUTO) 8.5 %; NEUTROPHILS # (AUTO) 6.2 10^3/uL (1.5-6.6); PLT - PLATELET COUNT 187 10^3/uL (130-450); RED BLOOD COUNT 3.95 10^6/uL (4.20-5.40); RED CELL DISTRIBUTION WIDTH 15.2 % (12.0-15.0); WHITE BLOOD COUNT 7.7 x10^3/uL (4.8-10.8)
[2021-08-29] MEDS: BUDESONIDE 0.5 MG/2 ML NEB INH SCH (07:27)
[2021-08-29] MEDS: ALBUTEROL NEB 2.5 MG/3 ML INH SCH (07:28)
[2021-08-29] MEDS ORDERED: PIPERACILLIN/TAZOBACTAM 3.375 GM in SODIUM CHLORIDE 0.9% MINIBAG 100 ML IV STA (07:35)
[2021-08-29] MEDS ORDERED: METOPROLOL TARTRATE 50 MG TABLET PO SCH (09:00)
[2021-08-29] MEDS ORDERED: FUROSEMIDE 20 MG TABLET PO SCH (09:00)
[2021-08-29 09:12] VITALS: BP 165/60
[2021-08-29] MEDS: HYDROmorphone 1 MG/ML CARPUJECT IVP PRN (10:20)
== END 2021-08-29 10:35 | disposition short-term general hospital (02) ==
LOC: EDUNIT# → ED 03:38 → SUPCPDRO 03:38 → ED 08-29 10:35
DX: K83.09 Other cholangitis (principal); K83.1 Obstruction of bile duct; R11.2 Nausea with vomiting, unspecified; F17.200 Nicotine dependence, unspecified, uncomplicated
CPT/HCPCS: 36415; 71045; 74176; 76705; 80053; 81003; 83605; 83690; 85025; 87040; 87631; 94640; 94664; 96361; 96365; 96366; 96375; 96376; 99284; 99285; A9270; J1170; J7120; J7626; 0202U; 81001; 87086